=== PATIENT | male | born 1945 | race Two or more races ===

== ENCOUNTER 2020-04-12 11:20 | Inpatient (IN) | payer MEDICARE, MEDICAID ==
[~2020-04-12] VITALS: Ht 172.7 cm; Wt 59.0 kg
[2020-04-12 11:26] VITALS: BP 112/75
--- NOTE | 2020-04-12 11:35 | NUR ---
ED Nurse Note: Pt brought in by [facility] for fever since last night temp 97.9 and tylenol was given at 0830am this morning. No coughing or chills. Awake but non verbal, no signs of respiratory distress.
[2020-04-12] MEDS ORDERED: GLUCOPHAGE500 MG ORAL (12:01)
[2020-04-12] MEDS ORDERED: LIPITOR20 MG ORAL (12:01)
[2020-04-12] MEDS ORDERED: FLEET ENEMA133 ML RECTAL (12:01)
[2020-04-12] MEDS ORDERED: COLACE100 MG ORAL (12:01)
[2020-04-12] MEDS ORDERED: SYMLIN600 MCG/1 SUBQ (12:01)
[2020-04-12] MEDS ORDERED: MELATONIN3 MG ORAL (12:01)
[2020-04-12] MEDS ORDERED: ASPIR 8181 MG ORAL (12:01)
[2020-04-12] MEDS ORDERED: FISH OIL 1,0001 EAC1 ORAL (12:01)
[2020-04-12] MEDS ORDERED: BISACODYL5 MG ORAL (12:01)
[2020-04-12] MEDS ORDERED: MULTIVITAMINS1 EAC8 ORAL (12:03)
[2020-04-12] MEDS ORDERED: TRADJENTA5 MG PO (12:03)
[2020-04-12] MEDS ORDERED: MILK OF MA2400 MG/10 ORAL (12:03)
[2020-04-12] MEDS ORDERED: TYLENOL EXTRA500 MG ORAL (12:03)
--- NOTE | 2020-04-12 12:35 | NUR ---
ED Nurse Note: Collected urine, covid, MRSA/VRE/CRE and blood specimen sent to lab.
--- NOTE | 2020-04-12 12:44 | NUR ---
ED Nurse Note: Noted redness on sacrum. no open wounds noted.
[2020-04-12 12:57] LABS: APPEARANCE,URINE SLIGHTLY CLOUDY; BILIRUBIN, URINE NEGATIVE (NEGATIVE); COLOR,URINE YELLOW; GLUCOSE, URINE (UA) NEGATIVE (NEGATIVE); KETONES,URINE NEGATIVE (NEGATIVE); LEUKOCYTE ESTERASE ,URINE NEGATIVE (NEGATIVE); NITRITE,URINE NEGATIVE (NEGATIVE); PH,URINE 6.5 (4.5-8.0); PROTEIN,URINE 2+ (NEGATIVE); UROBILINOGEN,URINE 4 MG/DL (0.0-1.0)
[2020-04-12 12:59] LABS: BASOPHILS % (AUTO) 0.6 % (0.0-2.0); EOSINOPHILS % (AUTO) 0.7 % (0.0-3.0); HEMATOCRIT 39.1 % (42.0-52.0); HEMOGLOBIN 13.9 G/DL (14.2-18.0); MEAN CORPUSCULAR VOLUME 81 FL (80-99); MONOCYTES % (AUTO) 5.5 % (1.0-10.0); NEUTROPHILS % (AUTO) 62.2 % (45.0-75.0); PLATELET COUNT 301 K/UL (150-450); RED BLOOD COUNT 4.83 M/UL (4.70-6.10); RED CELL DISTRIBUTION WIDTH 11.8 % (11.6-14.8); WHITE BLOOD COUNT 9.4 K/UL (4.8-10.8)
[2020-04-12 13:01] LABS: ANION GAP 8 mmol/L (5-15); BLOOD UREA NITROGEN 12 mg/dL (7-18); CALCIUM 8.5 MG/DL (8.5-10.1); CARBON DIOXIDE 29 MMOL/L (21-32); CHLORIDE 101 MMOL/L (98-107); CREATININE 0.8 MG/DL (0.55-1.30); POTASSIUM 3.5 MMOL/L (3.5-5.1); SODIUM 138 MMOL/L (136-145)
[2020-04-12 13:06] LABS: ALANINE AMINOTRANSFERASE 25 U/L (12-78); ALBUMIN/GLOBULIN RATIO 0.7 (1.0-2.7); ALKALINE PHOSPHATASE 87 U/L (46-116); ASPARTATE AMINO TRANSFERASE 25 U/L (15-37); BILIRUBIN,TOTAL 0.5 MG/DL (0.2-1.0)
[2020-04-12] MEDS ORDERED: Piperacillin/Tazobactam 3.375 GM in NS 110 ML IVPB ONE (13:15)
[2020-04-12] MEDS ORDERED: Azithromycin 500 MG in NS 275 ML IV ONE (13:15)
[2020-04-12 13:35] VITALS: BP 95/64
--- NOTE | 2020-04-12 14:30 | Emergency Room Report ---
History of Present Illness General Chief Complaint: Fever Source: Patient, Medical Record, EMS Present Illness HPI 74-year-old male presents the ED for evaluation. Brought in by EMS from intermediate facility. Reported fever x1 day. Given Tylenol at facility. Afebrile in triage. No signs of distress on arrival. Unable to provide any additional history at this time. History of psych. No reported nausea or vomiting. No shortness of breath. No other aggravating relieving factors. 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 Patient History Past Medical History: DM, COPD, psych hx Pertinent Family History: none Social History: Denies: smoking, alcohol use, drug use Immunizations: UTD Reviewed Nursing Documentation: PMH: Agreed; PSxH: Agreed Nursing Documentation-PMH Past Medical History: No History, Except For Hx COPD: Yes Hx Diabetes: Yes History Of Psychiatric Problem: Yes Review of Systems All Other Systems: limited Physical Exam Vital Signs Date Time Temp Pulse Resp B/P (MAP) Pulse Ox O2 Delivery O2 Flow Rate FiO2 04/12/20 11:26 97.9 81 20 108/64 (79) 95 Room Air Sp02 EP Interpretation: reviewed, normal General Appearance: no apparent distress, GCS 15, non-toxic, other - nonverbal Head: normocephalic, atraumatic Eyes: bilateral eye normal inspection, bilateral eye PERRL ENT: hearing grossly normal, normal pharynx, no angioedema, normal voice Neck: full range of motion, supple/symm/no masses Respiratory: chest non-tender, normal breath sounds, crackles, speaking full sentences Cardiovascular #1: regular rate, rhythm, no edema Cardiovascular #2: 2+ carotid (R), 2+ carotid (L), 2+ radial (R), 2+ radial (L) , 2+ dorsalis pedis (R), 2+ dorsalis pedis (L) Gastrointestinal: normal bowel sounds, non tender, soft, non-distended, no guarding, no rebound Rectal: deferred Genitourinary: normal inspection, no CVA tenderness Musculoskeletal: back normal, normal range of motion, gait/station normal, non- tender Neurologic: other - dementia Psychiatric: judgement/insight normal, memory normal, mood/affect normal, no suicidal/homicidal ideation Reflexes: 3+ bicep (R), 3+ bicep (L), 3+ tricep (R), 3+ tricep (L), 3+ knee (R) , 3+ knee (L) Skin: other - see nursing skin notes Lymphatic: no adenopathy Medical Decision Making Diagnostic Impression: Primary Impression: Fever Qualified Codes: R50.9 - Fever, unspecified Additional Impression: Pneumonia Qualified Codes: J18.9 - Pneumonia, unspecified organism ER Course Hospital Course 74 yo M presents with fever from SNF Differential diagnoses include: Pneumonia, UTI, sepsis Clinical course Patient placed on stretcher. in isolation. i wore full PPE. 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 After initial history and physical, I ordered labs , IV fluids, EKG, chest x-ray, blood cultures, UA. Labs -no leukocytosis, hemoglobin/hematocrit stable, electrolytes ok, lactic within normal limits, UA ok EKG - NSR, no acute ischemic changes interpreted by me CXR - R lower lobe infiltrate vitals stable. given IVFs. given abx. COVID swab sent. Case discussed with Dr. Parnell and he agreed to the patient to his service for further care and support I feel this is a highly complex case requiring extensive working including EKG/ Rhythm strip, Xray/CT/US, Blood/urine lab work, repeat exams while in ED, and administration of strong opiates/narcotics for pain control, admission to hospital or close patient follow up. Diagnosis - pneumonia, fever Patient admitted to floor in serious condition Labs Test 04/12/20 12:00 04/12/20 13:15 White Blood Count 9.4 K/UL (4.8-10.8) Red Blood Count 4.83 M/UL (4.70-6.10) Hemoglobin 13.9 G/DL (14.2-18.0) Hematocrit 39.1 % (42.0-52.0) Mean Corpuscular Volume 81 FL (80-99) Mean Corpuscular Hemoglobin 28.7 PG (27.0-31.0) Mean Corpuscular Hemoglobin Concent 35.5 G/DL (32.0-36.0) Red Cell Distribution Width 11.8 % (11.6-14.8) Platelet Count 301 K/UL (150-450) Mean Platelet Volume 5.2 FL (6.5-10.1) Neutrophils (%) (Auto) 62.2 % (45.0-75.0) Lymphocytes (%) (Auto) 31.0 % (20.0-45.0) Monocytes (%) (Auto) 5.5 % (1.0-10.0) Eosinophils (%) (Auto) 0.7 % (0.0-3.0) Basophils (%) (Auto) 0.6 % (0.0-2.0) Urine Color Yellow Urine Appearance Slightly cloudy Urine pH 6.5 (4.5-8.0) Urine Specific [place] 1.015 (1.005-1.035) Urine Protein 2+ (NEGATIVE) Urine Glucose (UA) Negative (NEGATIVE) Urine Ketones Negative (NEGATIVE) Urine Blood Negative (NEGATIVE) Urine Nitrite Negative (NEGATIVE) Urine Bilirubin Negative (NEGATIVE) Urine Urobilinogen 4 MG/DL (0.0-1.0) Urine Leukocyte Esterase Negative (NEGATIVE) Urine RBC 0 /HPF (0 - 0) Urine WBC 0-2 /HPF (0 - 0) Urine Squamous Epithelial Cells Occasional /LPF Urine Amorphous Sediment Few /LPF (NONE) Urine Bacteria Occasional /HPF (NONE) Sodium Level 138 MMOL/L (136-145) Potassium Level 3.5 MMOL/L (3.5-5.1) Chloride Level 101 MMOL/L (98-107) Carbon Dioxide Level 29 MMOL/L (21-32) Anion Gap 8 mmol/L (5-15) Blood Urea Nitrogen 12 mg/dL (7-18) Creatinine 0.8 MG/DL (0.55-1.30) Estimat Glomerular Filtration Rate > 60 mL/min (>60) Glucose Level 172 MG/DL (74-106) Lactic Acid Level 2.10 mmol/L (0.4-2.0) 2.00 mmol/L (0.66-2.22) Calcium Level 8.5 MG/DL (8.5-10.1) Total Bilirubin 0.5 MG/DL (0.2-1.0) Aspartate Amino Transf (AST/SGOT) 25 U/L (15-37) Alanine Aminotransferase (ALT/SGPT) 25 U/L (12-78) Alkaline Phosphatase 87 U/L (46-116) Total Protein 7.4 G/DL (6.4-8.2) Albumin 3.0 G/DL (3.4-5.0) Globulin 4.4 g/dL Albumin/Globulin Ratio 0.7 (1.0-2.7) EKG Diagnostic Results Rate: normal Rhythm: NSR ST Segments: no acute changes ASA given to the pt in ED: No Rhythm Strip Diag. Results EP Interpretation: yes Rhythm: NSR, no PVC's, no ectopy Chest X-Ray Diagnostic Results Chest X-Ray Diagnostic Results : Chest X-Ray Ordered: Yes # of Views/Limited/Complete: 1 View Indication: Other Interpretation: no pneumothorax, other - interstitial congestion Impression: Other - pneumonia Electronically Signed by: Electronically signed by Gino Cole MD Last Vital Signs Date Time Temp Pulse Resp B/P (MAP) Pulse Ox O2 Delivery O2 Flow Rate FiO2 04/12/20 11:36 81 18 Room Air 04/12/20 11:26 97.9 112/75 99 Status: improved Disposition: ADMITTED INPATIENT Condition: Serious Referrals: Prem Parnell DO (PCP) Gino Cole MD April 12, 2020 14:30
--- NOTE | 2020-04-12 14:54 | Consultation ---
History of Present Illness General Chief Complaint: Fever Present Illness HPI 74-year-old male with hx of COPD, DM, psychosis [facility] resident brought in by paramedics to ED for evaluation of fever x1 day. . No signs of distress on arrival. Unable to provide any additional history at this time. No reported nausea or vomiting. No shortness of breath. No other aggravating relieving factors. No other associated symptoms. Pt's CXR showed multiple infiltrates. He is admitted to rule out COVID infection. Allergies: Coded Allergies: No Known Allergies (Unverified , 04/12/20) Medication History Scheduled Aspirin* (Aspir 81*), 81 MG ORAL DAILY, (Reported) Atorvastatin Calcium* (Lipitor*), 20 MG ORAL BEDTIME, (Reported) Bisacodyl* (Dulcolax*), 10 MG ORAL DAILY, (Reported) Docusate Sodium* (Colace*), 100 MG ORAL DAILY, (Reported) Magnesium Hydroxide* (Milk Of Magnesia*), 30 ML ORAL DAILY, (Reported) Metformin Hcl* (Glucophage*), 500 MG ORAL DAILY, (Reported) Multivitamin With Minerals (Multivitamins With Minerals*), 1 TAB ORAL DAILY, ( Reported) Na Phos,M-B/Na Phos,Di-Ba* (Fleet Enema*), 133 ML RECTAL DAILY, (Reported) [place]-3 Fatty Acids/Fish Oil* (Fish Oil 1,000 Mg Softgel*), 1 CAP ORAL DAILY, ( Reported) Scheduled PRN Acetaminophen* (Tylenol Extra Strength*), 325 MG ORAL Q6H PRN for Mild Pain/ Temp > 100.5, (Reported) Melatonin (Melatonin), 3 MG ORAL BEDTIME PRN for Insomnia, (Reported) Miscellaneous Medications Insulin Regular, Human (Humulin R), Unknown Dose SUBQ, (Reported) Linagliptin (Tradjenta), 5 MG PO, (Reported) Patient History Healthcare decision maker Resuscitation status Advanced Directive on File Past Medical/Surgical History Past Medical/Surgical History: (1) COPD (chronic obstructive pulmonary disease) (2) Diabetes mellitus (3) Psychosis Review of Systems All Other Systems: negative except mentioned in HPI Physical Exam General Appearance: cachetic, thin Lines, tubes and drains: peripheral HEENT: normocephalic, anicteric Neck: non-tender, supple Respiratory/Chest: rhonchi - left, rhonchi - right Cardiovascular/Chest: normal peripheral pulses, normal rate Abdomen: normal bowel sounds, non tender Extremities: normal range of motion Skin Exam: normal pigmentation Last 24 Hour Vital Signs Date Time Temp Pulse Resp B/P (MAP) Pulse Ox O2 Delivery O2 Flow Rate FiO2 04/12/20 11:36 81 18 Room Air 04/12/20 11:26 97.9 81 16 112/75 99 Room Air 04/12/20 11:26 97.9 81 20 108/64 (79) 95 Room Air Laboratory Tests Test 04/12/20 12:00 04/12/20 13:15 White Blood Count 9.4 K/UL (4.8-10.8) Red Blood Count 4.83 M/UL (4.70-6.10) Hemoglobin 13.9 G/DL (14.2-18.0) L Hematocrit 39.1 % (42.0-52.0) L Mean Corpuscular Volume 81 FL (80-99) Mean Corpuscular Hemoglobin 28.7 PG (27.0-31.0) Mean Corpuscular Hemoglobin Concent 35.5 G/DL (32.0-36.0) Red Cell Distribution Width 11.8 % (11.6-14.8) Platelet Count 301 K/UL (150-450) Mean Platelet Volume 5.2 FL (6.5-10.1) L Neutrophils (%) (Auto) 62.2 % (45.0-75.0) Lymphocytes (%) (Auto) 31.0 % (20.0-45.0) Monocytes (%) (Auto) 5.5 % (1.0-10.0) Eosinophils (%) (Auto) 0.7 % (0.0-3.0) Basophils (%) (Auto) 0.6 % (0.0-2.0) Urine Color Yellow Urine Appearance Slightly cloudy Urine pH 6.5 (4.5-8.0) Urine Specific [place] 1.015 (1.005-1.035) Urine Protein 2+ (NEGATIVE) H Urine Glucose (UA) Negative (NEGATIVE) Urine Ketones Negative (NEGATIVE) Urine Blood Negative (NEGATIVE) Urine Nitrite Negative (NEGATIVE) Urine Bilirubin Negative (NEGATIVE) Urine Urobilinogen 4 MG/DL (0.0-1.0) H Urine Leukocyte Esterase Negative (NEGATIVE) Urine RBC 0 /HPF (0 - 0) Urine WBC 0-2 /HPF (0 - 0) Urine Squamous Epithelial Cells Occasional /LPF Urine Amorphous Sediment Few /LPF (NONE) H Urine Bacteria Occasional /HPF (NONE) Sodium Level 138 MMOL/L (136-145) Potassium Level 3.5 MMOL/L (3.5-5.1) Chloride Level 101 MMOL/L (98-107) Carbon Dioxide Level 29 MMOL/L (21-32) Anion Gap 8 mmol/L (5-15) Blood Urea Nitrogen 12 mg/dL (7-18) Creatinine 0.8 MG/DL (0.55-1.30) Estimat Glomerular Filtration Rate > 60 mL/min (>60) Glucose Level 172 MG/DL (74-106) H Lactic Acid Level 2.10 mmol/L (0.4-2.0) H 2.00 mmol/L (0.66-2.22) Calcium Level 8.5 MG/DL (8.5-10.1) Total Bilirubin 0.5 MG/DL (0.2-1.0) Aspartate Amino Transf (AST/SGOT) 25 U/L (15-37) Alanine Aminotransferase (ALT/SGPT) 25 U/L (12-78) Alkaline Phosphatase 87 U/L (46-116) Total Protein 7.4 G/DL (6.4-8.2) Albumin 3.0 G/DL (3.4-5.0) L Globulin 4.4 g/dL Albumin/Globulin Ratio 0.7 (1.0-2.7) L Height (Feet): 5 Height (Inches): 8.00 Weight (Pounds): 140 Assessment/Plan Problem List: (1) Fever ICD Codes: R50.9 - Fever, unspecified SNOMED: 734185009 Qualifiers: Qualified Codes: R50.9 - Fever, unspecified (2) Nosocomial pneumonia ICD Codes: J18.9 - Pneumonia, unspecified organism; Y95 - Nosocomial condition SNOMED: 917566294 (3) Suspected 2019-nCoV infection ICD Codes: Z20.828 - Contact with and (suspected) exposure to other viral communicable diseases SNOMED: 984692898 (4) COPD (chronic obstructive pulmonary disease) ICD Codes: J44.9 - Chronic obstructive pulmonary disease, unspecified SNOMED: 81204495 (5) Diabetes mellitus ICD Codes: E11.9 - Type 2 diabetes mellitus without complications SNOMED: 81267644 Assessment/Plan: fallon culture iv abx f/u wbc Olivia testing sliding scale diabetic diet Gabi Stewart MD April 12, 2020 14:54
[2020-04-12] MEDS ORDERED: Albuterol/Ipratropium 3ml neb HHN PRN (15:00)
[2020-04-12] MEDS ORDERED: Miralax 17gm pkt ORAL PRN (15:00)
[2020-04-12] MEDS ORDERED: Nitroglycerin Subl 0.4mg tab SL PRN (15:00)
[2020-04-12 15:05] VITALS: BP 96/62
--- NOTE | 2020-04-12 15:15 | NUR ---
ED Nurse Note: Report given to Renato WARE of Med Surg unit.
--- NOTE | 2020-04-12 15:40 | NUR ---
ED Nurse Note: Pt transferred to Med Surg unit with no belongings. Stable for transfer.
[2020-04-12 16:00] VITALS: BP 117/49
--- NOTE | 2020-04-12 16:00 | NUR ---
NURSE NOTES: RN RECEIVED PT FROM EMERGENCY ROOM. PT HAD DIAPER ON UPON ARRIVAL. PT HAS STAGE 1 SACRAL WOUND. RN TOOK PICTURE AND APPLIED SKIN BARRIER FILM AND OPTIFOAM DRESSING. IN NO APPARENT DISTRESS AT THIS TIME. VSS. BED IN LOWEST POSITION WITH BEDSIDE RAILS X3 RAISED. BED ALARM ON. WILL CONTINUE TO MONITOR.
[2020-04-12] MEDS: NovoLOG Insulin Flexpen SUBQ SCH ×2 (16:30→21:00)
--- NOTE | 2020-04-12 16:52 | Consultation ---
History of Present Illness General Date patient seen: April 12, 2020 Chief Complaint: Fever Present Illness HPI 74 y/o M with hx of Dm2, COPD, psychiatric disorder, SNF resident ([facility]) presented to ED on 04/12 with 1 day of fever No report of nausea, vomiting, SOB Allergies: Coded Allergies: No Known Allergies (Unverified , 04/12/20) Medication History Scheduled Aspirin* (Aspir 81*), 81 MG ORAL DAILY, (Reported) Atorvastatin Calcium* (Lipitor*), 20 MG ORAL BEDTIME, (Reported) Bisacodyl* (Dulcolax*), 10 MG ORAL DAILY, (Reported) Docusate Sodium* (Colace*), 100 MG ORAL DAILY, (Reported) Magnesium Hydroxide* (Milk Of Magnesia*), 30 ML ORAL DAILY, (Reported) Metformin Hcl* (Glucophage*), 500 MG ORAL DAILY, (Reported) Multivitamin With Minerals (Multivitamins With Minerals*), 1 TAB ORAL DAILY, ( Reported) Na Phos,M-B/Na Phos,Di-Ba* (Fleet Enema*), 133 ML RECTAL DAILY, (Reported) [place]-3 Fatty Acids/Fish Oil* (Fish Oil 1,000 Mg Softgel*), 1 CAP ORAL DAILY, ( Reported) Scheduled PRN Acetaminophen* (Tylenol Extra Strength*), 325 MG ORAL Q6H PRN for Mild Pain/ Temp > 100.5, (Reported) Melatonin (Melatonin), 3 MG ORAL BEDTIME PRN for Insomnia, (Reported) Miscellaneous Medications Insulin Regular, Human (Humulin R), Unknown Dose SUBQ, (Reported) Linagliptin (Tradjenta), 5 MG PO, (Reported) Patient History Healthcare decision maker Resuscitation status Advanced Directive on File Patient History Narrative Pmhx: as above Shx: Denies: smoking, alcohol use, drug use Fhx: non contributory Review of Systems All Other Systems: negative except mentioned in HPI Physical Exam Physical Exam Narrative General Appearance: cachetic, thin Lines, tubes and drains: peripheral HEENT: normocephalic, anicteric Neck: non-tender, supple Respiratory/Chest: rhonchi - left, rhonchi - right Cardiovascular/Chest: normal peripheral pulses, normal rate Abdomen: normal bowel sounds, non tender Extremities: normal range of motion Skin Exam: normal pigmentation Last 24 Hour Vital Signs Date Time Temp Pulse Resp B/P (MAP) Pulse Ox O2 Delivery O2 Flow Rate FiO2 04/12/20 16:00 98.1 82 19 117/49 (71) 96 04/12/20 15:40 97.9 80 16 102/73 99 Room Air 04/12/20 15:05 97.9 77 18 96/62 97 Room Air 04/12/20 13:35 97.9 76 16 95/64 95 Room Air 04/12/20 11:36 81 18 Room Air 04/12/20 11:26 97.9 81 16 112/75 99 Room Air 04/12/20 11:26 97.9 81 20 108/64 (79) 95 Room Air Laboratory Tests Test 04/12/20 12:00 04/12/20 13:15 White Blood Count 9.4 K/UL (4.8-10.8) Red Blood Count 4.83 M/UL (4.70-6.10) Hemoglobin 13.9 G/DL (14.2-18.0) L Hematocrit 39.1 % (42.0-52.0) L Mean Corpuscular Volume 81 FL (80-99) Mean Corpuscular Hemoglobin 28.7 PG (27.0-31.0) Mean Corpuscular Hemoglobin Concent 35.5 G/DL (32.0-36.0) Red Cell Distribution Width 11.8 % (11.6-14.8) Platelet Count 301 K/UL (150-450) Mean Platelet Volume 5.2 FL (6.5-10.1) L Neutrophils (%) (Auto) 62.2 % (45.0-75.0) Lymphocytes (%) (Auto) 31.0 % (20.0-45.0) Monocytes (%) (Auto) 5.5 % (1.0-10.0) Eosinophils (%) (Auto) 0.7 % (0.0-3.0) Basophils (%) (Auto) 0.6 % (0.0-2.0) Urine Color Yellow Urine Appearance Slightly cloudy Urine pH 6.5 (4.5-8.0) Urine Specific [place] 1.015 (1.005-1.035) Urine Protein 2+ (NEGATIVE) H Urine Glucose (UA) Negative (NEGATIVE) Urine Ketones Negative (NEGATIVE) Urine Blood Negative (NEGATIVE) Urine Nitrite Negative (NEGATIVE) Urine Bilirubin Negative (NEGATIVE) Urine Urobilinogen 4 MG/DL (0.0-1.0) H Urine Leukocyte Esterase Negative (NEGATIVE) Urine RBC 0 /HPF (0 - 0) Urine WBC 0-2 /HPF (0 - 0) Urine Squamous Epithelial Cells Occasional /LPF Urine Amorphous Sediment Few /LPF (NONE) H Urine Bacteria Occasional /HPF (NONE) Sodium Level 138 MMOL/L (136-145) Potassium Level 3.5 MMOL/L (3.5-5.1) Chloride Level 101 MMOL/L (98-107) Carbon Dioxide Level 29 MMOL/L (21-32) Anion Gap 8 mmol/L (5-15) Blood Urea Nitrogen 12 mg/dL (7-18) Creatinine 0.8 MG/DL (0.55-1.30) Estimat Glomerular Filtration Rate > 60 mL/min (>60) Glucose Level 172 MG/DL (74-106) H Lactic Acid Level 2.10 mmol/L (0.4-2.0) H 2.00 mmol/L (0.66-2.22) Calcium Level 8.5 MG/DL (8.5-10.1) Total Bilirubin 0.5 MG/DL (0.2-1.0) Aspartate Amino Transf (AST/SGOT) 25 U/L (15-37) Alanine Aminotransferase (ALT/SGPT) 25 U/L (12-78) Alkaline Phosphatase 87 U/L (46-116) Total Protein 7.4 G/DL (6.4-8.2) Albumin 3.0 G/DL (3.4-5.0) L Globulin 4.4 g/dL Albumin/Globulin Ratio 0.7 (1.0-2.7) L Height (Feet): 5 Height (Inches): 8.00 Weight (Pounds): 140 Medications Current Medications Medications (Trade) Dose Ordered Sig/Rodney Route PRN Reason Start Time Stop Time Status Last Admin Dose Admin Acetaminophen (Tylenol) 650 mg Q4H PRN ORAL fever 04/12/20 15:00 05/12/20 14:59 Albuterol/ Ipratropium (Combivent Respimat) 1 puff Q4H PRN INH Shortness of Breath 04/12/20 15:33 05/12/20 15:32 Atorvastatin Calcium (Lipitor) 20 mg BEDTIME ORAL 04/12/20 21:00 07/11/20 20:59 Cefepime HCl 2 gm/ Dextrose 110 ml @ 220 mls/hr EVERY 12 HOURS IV 04/12/20 21:00 04/19/20 20:59 Dextrose (Dextrose 50%) 25 ml Q30M PRN IV Hypoglycemia 04/12/20 15:00 07/11/20 14:59 Dextrose (Dextrose 50%) 50 ml Q30M PRN IV Hypoglycemia 04/12/20 15:00 07/11/20 14:59 Heparin Sodium (Porcine) (Heparin 5000 units/ml) 5,000 units EVERY 12 HOURS SUBQ 04/12/20 21:00 05/27/20 20:59 Insulin Aspart (NovoLOG) BEFORE MEALS AND HS SUBQ 04/12/20 16:30 07/11/20 16:29 Nitroglycerin (Ntg) 0.4 mg Q5M PRN SL Prn Chest Pain 04/12/20 15:00 05/12/20 14:59 Ondansetron HCl (Zofran) 4 mg Q6H PRN IVP Nausea & Vomiting 04/12/20 15:00 05/12/20 14:59 Polyethylene Glycol (Miralax) 17 gm DAILYPRN PRN ORAL Constipation 04/12/20 15:00 05/12/20 14:59 Temazepam (Restoril) 15 mg HSPRN PRN ORAL Insomnia 04/12/20 15:00 04/19/20 14:59 Vancomycin HCl (Vanco rx to dose) 1 ea DAILY PRN MISC . 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 Will continue to follow along with you. Discussed with JEANIE. Genesis Omalley M.D. April 12, 2020 16:52
--- NOTE | 2020-04-12 17:29 | Diagnostic Imaging Report ---
Indication: Cough Technique: One view of the chest Comparison: none Findings: There is bilateral interstitial disease as well as right basilar and possibly left retrocardiac airspace disease. Pleural spaces are clear. The heart size is normal. Impression: Bilateral interstitial and airspace infiltrates, possibly representing pneumonia, as described
--- NOTE | 2020-04-12 19:30 | NUR ---
NURSE NOTES: RECEIVED PATIENT FROM JEANIE MONTERROSO. PATIENT IS AWAKE, AAOX1, PORTUGUESE SPEAKING. PATIENT IS ON R.A, NO ACUTE DISTRESS NOTED. HERRERA INTACT, DRAINING WELL, HERRERA ANCHOR IN PLACE. WOUND DRESSINGS ON SACRAL AND HEELS INTACT AND DRY. IV ON RIGHT HAND 20G, SL, INTACT AND PATENT. BED IS LOCKED AND LOW, BED ALARMS ACTIVE, SIDE RAILS UPX2 AND CALL LIGHT IS WITHIN REACH. WILL CONTINUE TO MONITOR. Addendum: 04/13/20 at 2350 by Zoe Edwards RN CONDOM CATH, NOT HERRERA CATH.
--- NOTE | 2020-04-12 19:57 | NUR ---
HAND-OFF: Report given to Asia VANCE RN.
--- NOTE | 2020-04-12 19:59 | NUR ---
NURSE NOTES: RN WAS UNABLE TO UPLOAD WOUND PICTURES AT 4 EAST OR 3 EAST. CAMERA UNRECOGNIZED AT COMPUTERS AT THESE NURSING STATIONS. RN MADE Asia VANCE RN AWARE.
[2020-04-12 20:27] VITALS: BP 126/53
[2020-04-12] MEDS: Atorvastatin 20mg tab ORAL SCH ×2 (21:00→21:22)
[2020-04-12] MEDS: Vancomycin 750 MG in NS 275 ML IVPB SCH (21:22)
[2020-04-12] MEDS: Cefepime HCl 2 GM in D5W 110 ML IV SCH (21:22)
[2020-04-12] MEDS: Heparin 5000 units/ml inj SUBQ SCH (21:23)
[2020-04-13] MEDS ORDERED: Vancomycin 1 GM in D5W 275 ML IV SCH (00:30)
[2020-04-13 03:05] LABS: APPEARANCE,URINE CLEAR; COLOR,URINE PALE YELLOW; PH,URINE 7 (4.5-8.0); PROTEIN,URINE 1+ (NEGATIVE)
[2020-04-13 03:06] LABS: BILIRUBIN, URINE NEGATIVE (NEGATIVE); GLUCOSE, URINE (UA) NEGATIVE (NEGATIVE); KETONES,URINE NEGATIVE (NEGATIVE); LEUKOCYTE ESTERASE ,URINE NEGATIVE (NEGATIVE); NITRITE,URINE NEGATIVE (NEGATIVE); UROBILINOGEN,URINE NORMAL MG/DL (0.0-1.0)
[2020-04-13 04:00] VITALS: BP 98/61
[2020-04-13] MEDS: NovoLOG Insulin Flexpen SUBQ SCH ×4 (06:08→21:00)
[2020-04-13 06:22] LABS: BASOPHILS % (AUTO) 0.3 % (0.0-2.0); EOSINOPHILS % (AUTO) 1.2 % (0.0-3.0); HEMOGLOBIN 11.8 G/DL (14.2-18.0); MEAN CORPUSCULAR VOLUME 81 FL (80-99); MONOCYTES % (AUTO) 4.3 % (1.0-10.0); NEUTROPHILS % (AUTO) 59.2 % (45.0-75.0); PLATELET COUNT 280 K/UL (150-450); RED BLOOD COUNT 4.18 M/UL (4.70-6.10); WHITE BLOOD COUNT 6.9 K/UL (4.8-10.8)
[2020-04-13 07:01] LABS: ALANINE AMINOTRANSFERASE 21 U/L (12-78); ALBUMIN 2.5 G/DL (3.4-5.0); ALBUMIN/GLOBULIN RATIO 0.7 (1.0-2.7); ALKALINE PHOSPHATASE 70 U/L (46-116); ANION GAP 8 mmol/L (5-15); ASPARTATE AMINO TRANSFERASE 25 U/L (15-37); BILIRUBIN,TOTAL 0.5 MG/DL (0.2-1.0); BLOOD UREA NITROGEN 10 mg/dL (7-18); CALCIUM 7.4 MG/DL (8.5-10.1); CARBON DIOXIDE 27 MMOL/L (21-32); CHLORIDE 103 MMOL/L (98-107); CREATININE 0.9 MG/DL (0.55-1.30); POTASSIUM 3.2 MMOL/L (3.5-5.1); SODIUM 138 MMOL/L (136-145)
--- NOTE | 2020-04-13 07:18 | NUR ---
HAND-OFF: Report given to JEANIE Gross. Pictures uploaded. Patient is in stable condition.
[2020-04-13 08:00] VITALS: BP 103/56
[2020-04-13] MEDS: Cefepime HCl 2 GM in D5W 110 ML IV SCH ×2 (08:48→20:28)
[2020-04-13] MEDS: Heparin 5000 units/ml inj SUBQ SCH ×2 (08:53→20:29)
[2020-04-13] MEDS: Vancomycin 750 MG in NS 275 ML IVPB SCH ×2 (09:52→20:28)
[2020-04-13 11:57] VITALS: BP 104/57
--- NOTE | 2020-04-13 12:57 | Pulmonology Progress Note ---
Subjective ROS Limited/Unobtainable: No Constitutional: Reports: no symptoms HEENT: Repors: no symptoms Respiratory: Reports: no symptoms Allergies: Coded Allergies: No Known Allergies (Unverified , 04/12/20) Objective Last 24 Hour Vital Signs Date Time Temp Pulse Resp B/P (MAP) Pulse Ox O2 Delivery O2 Flow Rate FiO2 04/13/20 11:57 98.4 70 18 104/57 (73) 96 04/13/20 09:00 Room Air 04/13/20 08:00 97.8 77 20 103/56 (72) 97 04/13/20 04:00 98.1 86 18 98/61 (73) 93 04/12/20 21:00 Room Air 04/12/20 20:27 98.5 84 18 126/53 (77) 93 04/12/20 17:01 Room Air 04/12/20 16:00 98.1 82 19 117/49 (71) 96 04/12/20 15:40 97.9 80 16 102/73 99 Room Air 04/12/20 15:05 97.9 77 18 96/62 97 Room Air 04/12/20 13:35 97.9 76 16 95/64 95 Room Air Intake and Output 04/12/20 04/13/20 19:00 07:00 Intake Total 2445 ml 586.666 ml Balance 2445 ml 586.666 ml Intake Oral 60 ml IV Total 2385 ml 586.666 ml # Voids 3 # Bowel Movements 1 1 General Appearance: WD/WN, no acute distress HEENT: normocephalic, atraumatic, PERRL Respiratory: chest wall non-tender, lungs clear Cardiovascular: normal rate Abdomen: normal bowel sounds, soft, non tender, no scars Extremities: no cyanosis Skin: no rash 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 Lymphatic: no neck adenopathy Laboratory Tests 04/12/20 13:15: Lactic Acid Level 2.00 04/12/20 23:30: Urine Color Pale yellow, Urine Appearance Clear, Urine pH 7, Urine Specific [place] 1.010, Urine Protein 1+H, Urine Glucose (UA) Negative, Urine Ketones Negative, Urine Blood Negative, Urine Nitrite Negative, Urine Bilirubin Negative , Urine Urobilinogen Normal, Urine Leukocyte Esterase Negative, Urine RBC 0-2H, Urine WBC 0, Urine Squamous Epithelial Cells None, Urine Bacteria None 04/13/20 05:00: White Blood Count 6.9, Red Blood Count 4.18L, Hemoglobin 11.8L, Hematocrit 34.0L , Mean Corpuscular Volume 81, Mean Corpuscular Hemoglobin 28.2, Mean Corpuscular Hemoglobin Concent 34.7, Red Cell Distribution Width 12.0, Platelet Count 280, Mean Platelet Volume 5.1L, Neutrophils (%) (Auto) 59.2, Lymphocytes ( %) (Auto) 35.0, Monocytes (%) (Auto) 4.3, Eosinophils (%) (Auto) 1.2, Basophils (%) (Auto) 0.3, Sodium Level 138, Potassium Level 3.2L, Chloride Level 103, Carbon Dioxide Level 27, Anion Gap 8, Blood Urea Nitrogen 10, Creatinine 0.9, Estimat Glomerular Filtration Rate > 60, Glucose Level 103, Calcium Level 7.4L, Total Bilirubin 0.5, Aspartate Amino Transf (AST/SGOT) 25, Alanine Aminotransferase (ALT/SGPT) 21, Alkaline Phosphatase 70, Total Protein 6.2L, Albumin 2.5L, Globulin 3.7, Albumin/Globulin Ratio 0.7L Current Medications Medications (Trade) Dose Ordered Sig/Rodney Route PRN Reason Start Time Stop Time Status Last Admin Dose Admin Acetaminophen (Tylenol) 650 mg Q4H PRN ORAL fever 04/12/20 15:00 05/12/20 14:59 Albuterol/ Ipratropium (Combivent Respimat) 1 puff Q4H PRN INH Shortness of Breath 04/12/20 15:33 05/12/20 15:32 Atorvastatin Calcium (Lipitor) 20 mg BEDTIME ORAL 04/12/20 21:00 07/11/20 20:59 Cefepime HCl 2 gm/ Dextrose 110 ml @ 220 mls/hr EVERY 12 HOURS IV 04/12/20 21:00 04/19/20 20:59 04/13/20 08:48 Dextrose (Dextrose 50%) 25 ml Q30M PRN IV Hypoglycemia 04/12/20 15:00 07/11/20 14:59 Dextrose (Dextrose 50%) 50 ml Q30M PRN IV Hypoglycemia 04/12/20 15:00 07/11/20 14:59 Heparin Sodium (Porcine) (Heparin 5000 units/ml) 5,000 units EVERY 12 HOURS SUBQ 04/12/20 21:00 05/27/20 20:59 04/13/20 08:53 Insulin Aspart (NovoLOG) BEFORE MEALS AND HS SUBQ 04/12/20 16:30 07/11/20 16:29 Nitroglycerin (Ntg) 0.4 mg Q5M PRN SL Prn Chest Pain 04/12/20 15:00 05/12/20 14:59 Ondansetron HCl (Zofran) 4 mg Q6H PRN IVP Nausea & Vomiting 04/12/20 15:00 05/12/20 14:59 Polyethylene Glycol (Miralax) 17 gm DAILYPRN PRN ORAL Constipation 04/12/20 15:00 05/12/20 14:59 Temazepam (Restoril) 15 mg HSPRN PRN ORAL Insomnia 04/12/20 15:00 04/19/20 14:59 Vancomycin HCl (Vanco rx to dose) 1 ea DAILY PRN MISC . 04/12/20 15:30 05/12/20 15:29 Vancomycin HCl 750 mg/Sodium Chloride 275 ml @ 183.333 mls/hr Q12HR IVPB 04/12/20 21:00 04/17/20 20:59 04/13/20 09:52 Assessment/Plan Problems: (1) Fever (2) Nosocomial pneumonia (3) Suspected 2019-nCoV infection (4) COPD (chronic obstructive pulmonary disease) (5) Diabetes mellitus (6) Psychosis Assessment/Plan afebrile doing ok fallon culture iv abx f/u wbc Olivia testing sliding scale diabetic diet Gabi Stewart MD April 13, 2020 12:57
--- NOTE | 2020-04-13 14:28 | NUR ---
CASE MANAGEMENT:INITIAL REVIEW 74 YR OLD MALE BIBA FROM [facility] CONV CC;FEVER SI;FEVER. SUSPECTED COVID-19. 97.9 81 18 95/64 95% ON RA BG 172 LAC ACID 2.10 ALB 3.0 UA+ PROTEIN, UROBILI, AMORPHOUS SEDIMENT CXR~ Bilateral interstitial and airspace infiltrates, possibly representing pneumonia, as described COVID-19~RESULT PENDING IS;IVF NS BOLUS AZITHROMYCIN IV ONCE ZOSYN IV ONCE ADMITTED TO MED SURG @ 1508 ON 04/12/20 MED SURG STATUS DCP;FROM [facility]
--- NOTE | 2020-04-13 15:51 | Infectious Diseases Prog Note ---
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 Will continue to follow along with you. Discussed with RN. Subjective Allergies: Coded Allergies: No Known Allergies (Unverified , 04/12/20) Subjective afebrile at RA Objective Vital Signs Last 24 Hour Vital Signs Date Time Temp Pulse Resp B/P (MAP) Pulse Ox O2 Delivery O2 Flow Rate FiO2 04/13/20 11:57 98.4 70 18 104/57 (73) 96 04/13/20 09:00 Room Air 04/13/20 08:00 97.8 77 20 103/56 (72) 97 04/13/20 04:00 98.1 86 18 98/61 (73) 93 04/12/20 21:00 Room Air 04/12/20 20:27 98.5 84 18 126/53 (77) 93 04/12/20 17:01 Room Air 04/12/20 16:00 98.1 82 19 117/49 (71) 96 Height (Feet): 5 Height (Inches): 8.00 Weight (Pounds): 140 Objective not examined to limit COVID19 exposure Laboratory Tests Test 04/12/20 23:30 04/13/20 05:00 Urine Color Pale yellow Urine Appearance Clear Urine pH 7 (4.5-8.0) Urine Specific [place] 1.010 (1.005-1.035) Urine Protein 1+ (NEGATIVE) H Urine Glucose (UA) Negative (NEGATIVE) Urine Ketones Negative (NEGATIVE) Urine Blood Negative (NEGATIVE) Urine Nitrite Negative (NEGATIVE) Urine Bilirubin Negative (NEGATIVE) Urine Urobilinogen Normal MG/DL (0.0-1.0) Urine Leukocyte Esterase Negative (NEGATIVE) Urine RBC 0-2 /HPF (0 - 0) H Urine WBC 0 /HPF (0 - 0) Urine Squamous Epithelial Cells None /LPF (NONE/OCC) Urine Bacteria None /HPF (NONE) White Blood Count 6.9 K/UL (4.8-10.8) Red Blood Count 4.18 M/UL (4.70-6.10) L Hemoglobin 11.8 G/DL (14.2-18.0) L Hematocrit 34.0 % (42.0-52.0) L Mean Corpuscular Volume 81 FL (80-99) Mean Corpuscular Hemoglobin 28.2 PG (27.0-31.0) Mean Corpuscular Hemoglobin Concent 34.7 G/DL (32.0-36.0) Red Cell Distribution Width 12.0 % (11.6-14.8) Platelet Count 280 K/UL (150-450) Mean Platelet Volume 5.1 FL (6.5-10.1) L Neutrophils (%) (Auto) 59.2 % (45.0-75.0) Lymphocytes (%) (Auto) 35.0 % (20.0-45.0) Monocytes (%) (Auto) 4.3 % (1.0-10.0) Eosinophils (%) (Auto) 1.2 % (0.0-3.0) Basophils (%) (Auto) 0.3 % (0.0-2.0) Sodium Level 138 MMOL/L (136-145) Potassium Level 3.2 MMOL/L (3.5-5.1) L Chloride Level 103 MMOL/L (98-107) Carbon Dioxide Level 27 MMOL/L (21-32) Anion Gap 8 mmol/L (5-15) Blood Urea Nitrogen 10 mg/dL (7-18) Creatinine 0.9 MG/DL (0.55-1.30) Estimat Glomerular Filtration Rate > 60 mL/min (>60) Glucose Level 103 MG/DL (74-106) Calcium Level 7.4 MG/DL (8.5-10.1) L Total Bilirubin 0.5 MG/DL (0.2-1.0) Aspartate Amino Transf (AST/SGOT) 25 U/L (15-37) Alanine Aminotransferase (ALT/SGPT) 21 U/L (12-78) Alkaline Phosphatase 70 U/L (46-116) Total Protein 6.2 G/DL (6.4-8.2) L Albumin 2.5 G/DL (3.4-5.0) L Globulin 3.7 g/dL Albumin/Globulin Ratio 0.7 (1.0-2.7) L Current Medications Medications (Trade) Dose Ordered Sig/Rodney Route PRN Reason Start Time Stop Time Status Last Admin Dose Admin Acetaminophen (Tylenol) 650 mg Q4H PRN ORAL fever 04/12/20 15:00 05/12/20 14:59 Albuterol/ Ipratropium (Combivent Respimat) 1 puff Q4H PRN INH Shortness of Breath 04/12/20 15:33 05/12/20 15:32 Atorvastatin Calcium (Lipitor) 20 mg BEDTIME ORAL 04/12/20 21:00 07/11/20 20:59 Cefepime HCl 2 gm/ Dextrose 110 ml @ 220 mls/hr EVERY 12 HOURS IV 04/12/20 21:00 04/19/20 20:59 04/13/20 08:48 Dextrose (Dextrose 50%) 25 ml Q30M PRN IV Hypoglycemia 04/12/20 15:00 07/11/20 14:59 Dextrose (Dextrose 50%) 50 ml Q30M PRN IV Hypoglycemia 04/12/20 15:00 07/11/20 14:59 Heparin Sodium (Porcine) (Heparin 5000 units/ml) 5,000 units EVERY 12 HOURS SUBQ 04/12/20 21:00 05/27/20 20:59 04/13/20 08:53 Insulin Aspart (NovoLOG) BEFORE MEALS AND HS SUBQ 04/12/20 16:30 07/11/20 16:29 Nitroglycerin (Ntg) 0.4 mg Q5M PRN SL Prn Chest Pain 04/12/20 15:00 05/12/20 14:59 Ondansetron HCl (Zofran) 4 mg Q6H PRN IVP Nausea & Vomiting 04/12/20 15:00 05/12/20 14:59 Polyethylene Glycol (Miralax) 17 gm DAILYPRN PRN ORAL Constipation 04/12/20 15:00 05/12/20 14:59 Temazepam (Restoril) 15 mg HSPRN PRN ORAL Insomnia 04/12/20 15:00 04/19/20 14:59 Vancomycin HCl (Vanco rx to dose) 1 ea DAILY PRN MISC . 04/12/20 15:30 05/12/20 15:29 Vancomycin HCl 750 mg/Sodium Chloride 275 ml @ 183.333 mls/hr Q12HR IVPB 04/12/20 21:00 04/17/20 20:59 04/13/20 09:52 Genesis Omalley M.D. April 13, 2020 15:50
[2020-04-13 16:00] VITALS: BP 108/56
--- NOTE | 2020-04-13 16:00 | NUR ---
NURSE NOTES: DR DAVIES NOTIFIED PT IS COUGHING ON CURRENT DIET. NEW ORDER FOR PUREED MOIST WITH NECTAR THICK LIQUIDS AND SPEECH THERAPY EVAL. ORDERS ENTERED. PT IN NO APPARENT DISTRESS AT THIS TIME. IN HIGH GOMEZ'S POSITION WITH BED IN LOWEST POSITION, BEDSIDE RAILS X3 RAISED. BED ALARM ON. WILL CONTINUE TO MONITOR.
--- NOTE | 2020-04-13 16:33 | Consultation ---
History of Present Illness General Date patient seen: April 13, 2020 Chief Complaint: Fever Present Illness HPI 74 year old male shelter resident with multiple medical comorbidities presented to [facility] [place] for evaluation of fever. noted to have lactic acidosis. on admission identified to have multiple wounds requiring care. surgery called to evaluate and assist with care. patient seen, chart reviewed, patient examined. limited history reviewed chart Allergies: Coded Allergies: No Known Allergies (Unverified , 04/12/20) Medication History Scheduled Aspirin* (Aspir 81*), 81 MG ORAL DAILY, (Reported) Atorvastatin Calcium* (Lipitor*), 20 MG ORAL BEDTIME, (Reported) Bisacodyl* (Dulcolax*), 10 MG ORAL DAILY, (Reported) Docusate Sodium* (Colace*), 100 MG ORAL DAILY, (Reported) Magnesium Hydroxide* (Milk Of Magnesia*), 30 ML ORAL DAILY, (Reported) Metformin Hcl* (Glucophage*), 500 MG ORAL DAILY, (Reported) Multivitamin With Minerals (Multivitamins With Minerals*), 1 TAB ORAL DAILY, ( Reported) Na Phos,M-B/Na Phos,Di-Ba* (Fleet Enema*), 133 ML RECTAL DAILY, (Reported) [place]-3 Fatty Acids/Fish Oil* (Fish Oil 1,000 Mg Softgel*), 1 CAP ORAL DAILY, ( Reported) Scheduled PRN Acetaminophen* (Tylenol Extra Strength*), 325 MG ORAL Q6H PRN for Mild Pain/ Temp > 100.5, (Reported) Melatonin (Melatonin), 3 MG ORAL BEDTIME PRN for Insomnia, (Reported) Miscellaneous Medications Insulin Regular, Human (Humulin R), Unknown Dose SUBQ, (Reported) Linagliptin (Tradjenta), 5 MG PO, (Reported) Patient History Limited by: medical condition History Provided By: Medical Record, PMD Healthcare decision maker Resuscitation status Advanced Directive on File Past Medical/Surgical History Past Medical/Surgical History: (1) Psychosis (2) Fever (3) Diabetes mellitus (4) COPD (chronic obstructive pulmonary disease) (5) Nosocomial pneumonia (6) Suspected 2019-nCo infection Review of Systems ROS Narrative limited given baseline Physical Exam General Appearance: no apparent distress, alert Lines, tubes and drains: peripheral HEENT: mucous membranes moist Neck: supple, normal inspection Respiratory/Chest: normal breath sounds, no respiratory distress, no accessory muscle use Cardiovascular/Chest: regular rhythm Abdomen: soft, no organomegaly, no mass Extremities: normal capillary refill, inflammation Skin Exam: warm/dry Neurologic: other Last 24 Hour Vital Signs Date Time Temp Pulse Resp B/P (MAP) Pulse Ox O2 Delivery O2 Flow Rate FiO2 04/13/20 11:57 98.4 70 18 104/57 (73) 96 04/13/20 09:00 Room Air 04/13/20 08:00 97.8 77 20 103/56 (72) 97 04/13/20 04:00 98.1 86 18 98/61 (73) 93 04/12/20 21:00 Room Air 04/12/20 20:27 98.5 84 18 126/53 (77) 93 04/12/20 17:01 Room Air Intake and Output 04/12/20 04/13/20 19:00 07:00 Intake Total 2445 ml 586.666 ml Balance 2445 ml 586.666 ml Intake Oral 60 ml IV Total 2385 ml 586.666 ml # Voids 3 # Bowel Movements 1 1 Laboratory Tests Test 04/12/20 23:30 04/13/20 05:00 Urine Color Pale yellow Urine Appearance Clear Urine pH 7 (4.5-8.0) Urine Specific [place] 1.010 (1.005-1.035) Urine Protein 1+ (NEGATIVE) H Urine Glucose (UA) Negative (NEGATIVE) Urine Ketones Negative (NEGATIVE) Urine Blood Negative (NEGATIVE) Urine Nitrite Negative (NEGATIVE) Urine Bilirubin Negative (NEGATIVE) Urine Urobilinogen Normal MG/DL (0.0-1.0) Urine Leukocyte Esterase Negative (NEGATIVE) Urine RBC 0-2 /HPF (0 - 0) H Urine WBC 0 /HPF (0 - 0) Urine Squamous Epithelial Cells None /LPF (NONE/OCC) Urine Bacteria None /HPF (NONE) White Blood Count 6.9 K/UL (4.8-10.8) Red Blood Count 4.18 M/UL (4.70-6.10) L Hemoglobin 11.8 G/DL (14.2-18.0) L Hematocrit 34.0 % (42.0-52.0) L Mean Corpuscular Volume 81 FL (80-99) Mean Corpuscular Hemoglobin 28.2 PG (27.0-31.0) Mean Corpuscular Hemoglobin Concent 34.7 G/DL (32.0-36.0) Red Cell Distribution Width 12.0 % (11.6-14.8) Platelet Count 280 K/UL (150-450) Mean Platelet Volume 5.1 FL (6.5-10.1) L Neutrophils (%) (Auto) 59.2 % (45.0-75.0) Lymphocytes (%) (Auto) 35.0 % (20.0-45.0) Monocytes (%) (Auto) 4.3 % (1.0-10.0) Eosinophils (%) (Auto) 1.2 % (0.0-3.0) Basophils (%) (Auto) 0.3 % (0.0-2.0) Sodium Level 138 MMOL/L (136-145) Potassium Level 3.2 MMOL/L (3.5-5.1) L Chloride Level 103 MMOL/L (98-107) Carbon Dioxide Level 27 MMOL/L (21-32) Anion Gap 8 mmol/L (5-15) Blood Urea Nitrogen 10 mg/dL (7-18) Creatinine 0.9 MG/DL (0.55-1.30) Estimat Glomerular Filtration Rate > 60 mL/min (>60) Glucose Level 103 MG/DL (74-106) Calcium Level 7.4 MG/DL (8.5-10.1) L Total Bilirubin 0.5 MG/DL (0.2-1.0) Aspartate Amino Transf (AST/SGOT) 25 U/L (15-37) Alanine Aminotransferase (ALT/SGPT) 21 U/L (12-78) Alkaline Phosphatase 70 U/L (46-116) Total Protein 6.2 G/DL (6.4-8.2) L Albumin 2.5 G/DL (3.4-5.0) L Globulin 3.7 g/dL Albumin/Globulin Ratio 0.7 (1.0-2.7) L Height (Feet): 5 Height (Inches): 8.00 Weight (Pounds): 140 Medications Current Medications Medications (Trade) Dose Ordered Sig/Rodney Route PRN Reason Start Time Stop Time Status Last Admin Dose Admin Acetaminophen (Tylenol) 650 mg Q4H PRN ORAL fever 04/12/20 15:00 05/12/20 14:59 Albuterol/ Ipratropium (Combivent Respimat) 1 puff Q4H PRN INH Shortness of Breath 04/12/20 15:33 05/12/20 15:32 Atorvastatin Calcium (Lipitor) 20 mg BEDTIME ORAL 04/12/20 21:00 07/11/20 20:59 Cefepime HCl 2 gm/ Dextrose 110 ml @ 220 mls/hr EVERY 12 HOURS IV 04/12/20 21:00 04/19/20 20:59 04/13/20 08:48 Dextrose (Dextrose 50%) 25 ml Q30M PRN IV Hypoglycemia 04/12/20 15:00 07/11/20 14:59 Dextrose (Dextrose 50%) 50 ml Q30M PRN IV Hypoglycemia 04/12/20 15:00 07/11/20 14:59 Heparin Sodium (Porcine) (Heparin 5000 units/ml) 5,000 units EVERY 12 HOURS SUBQ 04/12/20 21:00 05/27/20 20:59 04/13/20 08:53 Insulin Aspart (NovoLOG) BEFORE MEALS AND HS SUBQ 04/12/20 16:30 07/11/20 16:29 Nitroglycerin (Ntg) 0.4 mg Q5M PRN SL Prn Chest Pain 04/12/20 15:00 05/12/20 14:59 Ondansetron HCl (Zofran) 4 mg Q6H PRN IVP Nausea & Vomiting 04/12/20 15:00 05/12/20 14:59 Polyethylene Glycol (Miralax) 17 gm DAILYPRN PRN ORAL Constipation 04/12/20 15:00 05/12/20 14:59 Temazepam (Restoril) 15 mg HSPRN PRN ORAL Insomnia 04/12/20 15:00 04/19/20 14:59 Vancomycin HCl (Vanco rx to dose) 1 ea DAILY PRN MISC . 04/12/20 15:30 05/12/20 15:29 Vancomycin HCl 750 mg/Sodium Chloride 275 ml @ 183.333 mls/hr Q12HR IVPB 04/12/20 21:00 04/17/20 20:59 04/13/20 09:52 Assessment/Plan Problem List: (1) Psychosis ICD Codes: F29 - Unspecified psychosis not due to a substance or known physiological condition SNOMED: 76960929 (2) Fever ICD Codes: R50.9 - Fever, unspecified SNOMED: 195942662 Qualifiers: Qualified Codes: R50.9 - Fever, unspecified (3) Diabetes mellitus ICD Codes: E11.9 - Type 2 diabetes mellitus without complications SNOMED: 49925357 (4) COPD (chronic obstructive pulmonary disease) ICD Codes: J44.9 - Chronic obstructive pulmonary disease, unspecified SNOMED: 03923747 (5) Nosocomial pneumonia ICD Codes: J18.9 - Pneumonia, unspecified organism; Y95 - Nosocomial condition SNOMED: 965251546 (6) Suspected 2019-nCoV infection ICD Codes: Z20.828 - Contact with and (suspected) exposure to other viral communicable diseases SNOMED: 836580014 (7) Incontinence associated dermatitis Assessment & Plan: 74-year-old male currently admitted for fever work-up. On admission identified to have low body weight BMI 21 low albumin Having continence and identified to have abnormality around the sacral buttock region. On evaluation identified to be con associated dermatitis. Currently has a condom cath and good urine output. Bowel movements monitor closely to ensure and help with clean up Mental status makes it difficult for patient to comfortably turn side to side and even with assistance he moves around a lot. We will monitor closely to ensure improvement. Nutritional supplementation Labs noted We will follow with recommendations Participate patient's care ICD Codes: L30.8 - Other specified dermatitis; R32 - Unspecified urinary incontinence SNOMED: 586183992 Chris Morocho April 13, 2020 16:32
--- NOTE | 2020-04-13 18:15 | History and Physical Report ---
DATE OF ADMISSION: 04/12/2020 DATE AND TIME SEEN: 04/13/2020 at 12 noon. CONSULTANTS: 1. Gabi Stewart MD. 2. Dylan Vigil MD. 3. Cristine Duenas MD. CHIEF COMPLAINT: Fever, confusion, weakness. BRIEF HISTORY: This is a 74-year-old male from [facility], presented with above-mentioned diagnoses, admitted to medical floor for further treatment. Currently, calm in bed, sleeping not talking much. PAST MEDICAL HISTORY: Includes encephalopathy, malnutrition, COPD, diabetes, CKD, weakness, PVD, schizophrenia. PAST SURGICAL HISTORY: Unknown. MEDICATIONS: Include vancomycin, atorvastatin, cefepime, insulin, albuterol, Zofran, temazepam, nitroglycerin. ALLERGIES: Denies. SOCIAL HISTORY: Unable to obtain. Patient is very lethargic. PHYSICAL EXAMINATION: GENERAL: Calm in bed, lethargic, sleepy, not talking much. VITAL SIGNS: Temperature 98 degrees, pulse 70, respirations 18, blood pressure 104/57. HEENT: Normocephalic, atraumatic. NECK: Trachea midline. CARDIOVASCULAR: No peripheral edema. PULMONARY: Breathing comfortably on room air. ABDOMEN: No apparent wounds. EXTREMITIES: Show no cyanosis or clubbing. LABORATORY DATA: Labs at this time show hemoglobin and hematocrit 11/34, otherwise CBC is normal. BMP shows potassium 3.2. Albumin 2.5. Otherwise normal. Urinalysis 1+ protein, otherwise normal. ASSESSMENT: 1. Fever. 2. Suspect COVID. 3. Pneumonia. 4. Sepsis. 5. Confusion. 6. Anemia. 7. Encephalopathy. 8. Malnutrition. 9. COPD. 10. Diabetes. 11. CKD. 12. Weakness. 13. PVD. 14. Schizophrenia. PLAN: 1. O2, pulmonary treatment. 2. Antibiotics per Infectious Disease. 3. Blood pressure, blood sugar, pain control. 4. Dietary followup. 5. Psych treatment. 6. PT, dietary eval. 7. CBC, BMP in the morning. Prem Parnell D.O. DR: ELAN JOB#: [id number] CC:
--- NOTE | 2020-04-13 19:20 | NUR ---
HAND-OFF: Report given to Asia VANCE RN.
--- NOTE | 2020-04-13 19:30 | NUR ---
NURSE NOTES: RECEIVED PATIENT FROM KRISSRN AND JEANIE CASON. PATIENT IS AWAKE, AAOX1, AMHARIC SPEAKING. PATIENT IS ON R.A, NO ACUTE DISTRESS NOTED. CONDOM CATH INTACT, DRAINING WELL, ANCHOR IN PLACE. WOUND DRESSINGS ON SACRAL AND HEELS INTACT AND DRY. IV ON RIGHT HAND 20G, SL, INTACT AND PATENT. BED IS LOCKED AND LOW, BED ALARMS ACTIVE, SIDE RAILS UPX2 AND CALL LIGHT IS WITHIN REACH. WILL CONTINUE TO MONITOR.
[2020-04-13 20:00] VITALS: BP 97/54
--- NOTE | 2020-04-13 21:00 | NUR ---
NURSE NOTES: PATIENT FINISHED 80% OF DINNER. 1:1 FEEDER. ASPIRATION PRECAUTIONS IMPLEMENTED. HOB >30 DEGREES.
[2020-04-13] MEDS: Atorvastatin 20mg tab ORAL SCH (21:34)
[2020-04-14] VITALS: BP 97/59
[2020-04-14 04:00] VITALS: BP 95/55
[2020-04-14 05:22] LABS: BASOPHILS % (AUTO) 0.5 % (0.0-2.0); EOSINOPHILS % (AUTO) 2.8 % (0.0-3.0); HEMATOCRIT 33.7 % (42.0-52.0); HEMOGLOBIN 11.8 G/DL (14.2-18.0); MEAN CORPUSCULAR VOLUME 81 FL (80-99); MONOCYTES % (AUTO) 8.5 % (1.0-10.0); NEUTROPHILS % (AUTO) 45.2 % (45.0-75.0); PLATELET COUNT 346 K/UL (150-450); RED BLOOD COUNT 4.18 M/UL (4.70-6.10); RED CELL DISTRIBUTION WIDTH 11.8 % (11.6-14.8); WHITE BLOOD COUNT 5.5 K/UL (4.8-10.8)
[2020-04-14 06:13] LABS: PHOSPHORUS 2.8 MG/DL (2.5-4.9)
[2020-04-14 06:16] LABS: ALANINE AMINOTRANSFERASE 20 U/L (12-78); ALBUMIN 2.6 G/DL (3.4-5.0); ALBUMIN/GLOBULIN RATIO 0.6 (1.0-2.7); ALKALINE PHOSPHATASE 70 U/L (46-116); ANION GAP 10 mmol/L (5-15); ASPARTATE AMINO TRANSFERASE 30 U/L (15-37); BILIRUBIN,TOTAL 0.5 MG/DL (0.2-1.0); BLOOD UREA NITROGEN 10 mg/dL (7-18); CARBON DIOXIDE 25 MMOL/L (21-32); CHLORIDE 104 MMOL/L (98-107); CREATININE 0.8 MG/DL (0.55-1.30); POTASSIUM 3.1 MMOL/L (3.5-5.1); SODIUM 139 MMOL/L (136-145)
[2020-04-14] MEDS: NovoLOG Insulin Flexpen SUBQ SCH ×4 (06:30→21:12)
--- NOTE | 2020-04-14 07:48 | NUR ---
HAND-OFF: Report given to JEANIE Grimaldo. Patient is in stable condition.
[2020-04-14 08:00] VITALS: BP 102/62
--- NOTE | 2020-04-14 08:06 | NUR ---
NURSE NOTES: Report received from Zoe RN. Patient seen on rounds, AXOx 0, non-verbal, but able to follow simple commands, not in distress, tolerating room air, no outward sx of pain. PIV on left forearm patent and intact. Condom cath secured and draining well. Bed low and locked, siderails up x2, zone alarms on 1, will continue to monitor.
--- NOTE | 2020-04-14 09:20 | General Progress Note ---
Assessment/Plan Problem List: (1) Diabetes ICD Codes: E11.9 - Type 2 diabetes mellitus without complications SNOMED: 21580712 (2) CKD (chronic kidney disease) ICD Codes: N18.9 - Chronic kidney disease, unspecified SNOMED: 603891038 (3) Weak ICD Codes: R53.1 - Weakness SNOMED: 90197644 (4) PVD (peripheral vascular disease) ICD Codes: I73.9 - Peripheral vascular disease, unspecified SNOMED: 510392517 (5) Psychosis ICD Codes: F29 - Unspecified psychosis not due to a substance or known physiological condition SNOMED: 06400694 (6) Diabetes mellitus ICD Codes: E11.9 - Type 2 diabetes mellitus without complications SNOMED: 76374671 (7) COPD (chronic obstructive pulmonary disease) ICD Codes: J44.9 - Chronic obstructive pulmonary disease, unspecified SNOMED: 75599879 (8) Suspected 2019-nCoV infection ICD Codes: Z20.828 - Contact with and (suspected) exposure to other viral communicable diseases SNOMED: 024124644 (9) Nosocomial pneumonia ICD Codes: J18.9 - Pneumonia, unspecified organism; Y95 - Nosocomial condition SNOMED: 067879281 Status: unchanged Assessment/Plan: o2 pulm tx abx pt diet cbc bmp am Subjective Constitutional: Reports: weakness Allergies: Coded Allergies: No Known Allergies (Unverified , 04/12/20) All Systems: reviewed and negative except above Subjective sleepy calm Objective Last 24 Hour Vital Signs Date Time Temp Pulse Resp B/P (MAP) Pulse Ox O2 Delivery O2 Flow Rate FiO2 04/14/20 04:00 97.7 78 20 95/55 (68) 94 04/14/20 00:00 98.1 83 20 97/59 (72) 90 04/13/20 21:00 Room Air 04/13/20 20:00 97.4 80 20 97/54 (68) 93 04/13/20 16:00 98.7 74 20 108/56 (73) 98 04/13/20 11:57 98.4 70 18 104/57 (73) 96 Intake and Output 04/13/20 04/14/20 18:59 06:59 Intake Total 160 ml 586.666 ml Output Total 800 ml 400 ml Balance -640 ml 186.666 ml Intake Oral 50 ml IV Total 110 ml 586.666 ml Output Urine Total 800 ml 400 ml # Bowel Movements 1 Laboratory Tests 04/14/20 05:00: White Blood Count 5.5, Red Blood Count 4.18L, Hemoglobin 11.8L, Hematocrit 33.7L , Mean Corpuscular Volume 81, Mean Corpuscular Hemoglobin 28.3, Mean Corpuscular Hemoglobin Concent 35.1, Red Cell Distribution Width 11.8, Platelet Count 346, Mean Platelet Volume 4.9L, Neutrophils (%) (Auto) 45.2, Lymphocytes ( %) (Auto) 43.0, Monocytes (%) (Auto) 8.5, Eosinophils (%) (Auto) 2.8, Basophils (%) (Auto) 0.5, Erythrocyte Sedimentation Rate 48H, Sodium Level 139, Potassium Level 3.1L, Chloride Level 104, Carbon Dioxide Level 25, Anion Gap 10, Blood Urea Nitrogen 10, Creatinine 0.8, Estimat Glomerular Filtration Rate > 60, Glucose Level 105, Calcium Level 8.0L, Phosphorus Level 2.8, Magnesium Level 1.9 , Total Bilirubin 0.5, Aspartate Amino Transf (AST/SGOT) 30, Alanine Aminotransferase (ALT/SGPT) 20, Alkaline Phosphatase 70, C-Reactive Protein, Quantitative 7.1H, Total Protein 6.6, Albumin 2.6L, Globulin 4.0, Albumin/ Globulin Ratio 0.6L 04/14/20 08:30: Vancomycin Level Trough 6.7 Height (Feet): 5 Height (Inches): 8.00 Weight (Pounds): 140 General Appearance: lethargic EENT: normal ENT inspection Neck: normal alignment Cardiovascular: normal rate, regular rhythm Respiratory/Chest: no respiratory distress, no accessory muscle use Extremities: normal inspection Skin: normal pigmentation Prem Parnell DO April 14, 2020 09:20
[2020-04-14] MEDS: Memantine 5 MG TAB ORAL SCH ×2 (09:27→17:05)
[2020-04-14] MEDS: Heparin 5000 units/ml inj SUBQ SCH ×2 (09:27→21:04)
[2020-04-14] MEDS: Cefepime HCl 2 GM in D5W 110 ML IV SCH ×2 (09:27→20:50)
[2020-04-14] MEDS ORDERED: Sodium Chloride for KCL Premix X 4hrs IV SCH (10:00)
[2020-04-14] MEDS: Vancomycin 1 GM in NS 275 ML IVPB SCH ×2 (10:18→22:52)
--- NOTE | 2020-04-14 11:37 | NUR ---
BEDSIDE SWALLOW EVALUATION. (Please see care activity section for complete report) PATIENT REFERRED FOR BEDSIDE SWALLOW EVALUATION BY DR. DAVIES DYSPHAGIA RISKS FOR THIS 74 Y.O. MALE: ACUTE ISSUES Fever, Nosocomial pneumonia (CXR: Bilateral interstitial and airspace infiltrates, possibly representing pneumonia, as described); COPD; Suspected 2019-CoV infection H/O Psychiatric d/o (Schizophrenia); DM2; Encephalopathy; Malnutrition; CKD; weakness; PVD; Hypokalemia; Ileus; Patient has a h/o oropharyngeal dysphagia (dx on 10/08/19); GERD; Hyperlipidemia; Major depressive disorder RELEVANT MEDS: Ativan (Benzodiazepine); Zofran (Nausea); Restoril (Insomnia) VITALS ON ROOM AIR: HR: 78 RR: 20 SP02: 94% POLST: Does not clarify Patients desire for alternative nutrition/hydration, Patient is a full code. PLOF: Patient is a resident of [facility], previously consumed puree solids with thin liquids, CCHO. Upon admission to [facility], Patient noted to be coughing on Mechanical soft-finely chopped and thin liquids, therefore, night RN notified MD, downgraded Patient to puree moist with nectar thick liquids and referred Patient to HAND ETCHER for bedside swallow evaluation. RN reports Patient did not exhibit any overt s/s of aspiration with crushed medications with puree apple sauce. Patient seen at bedside, primarily language is Telugu. Patient is able to rouse to tactile and verbal cues; Has natural dentition with missing teeth, oral hygiene is slightly reduced. Patient is unable to verbally communicate wants and needs, Patient does follow very simple 1-step directions when given verbal and tactile cues. Oral secretion management is functional. Patient is on room air and VSS for the duration of the session. INITIAL IMPRESSIONS: Mild to moderate oropharyngeal dysphagia with increased oral preparation and oropharyngeal transit times, oral ROM and coordination appears apraxic, compounded by cognitive behavioral deficits (AMS/confusion), fatigue, and reduced respiratory strength (per CXR on 04/12/20: Bilateral interstitial and airspace infiltrates, possibly representing pneumonia, as described) Patient additionally has a H/O oropharyngeal dysphagia and psychiatric d/o. PO TRIALS: -Given thin liquids via teaspoon, poor oral motor control of liquids, probable posterior premature spillage resulting in immediate overt s/s of aspiration, cough strength is intact. -Given [place] Thick Liquids and Puree solids with no overt s/s of aspiration HIGH RISK FOR SILENT ASPIRATION AND POOR PO INTAKE DUE TO REDUCED ALERTNESS (CONFUSION/AMS), H/O DYSPHAGIA AND MALNUTRITION. PATIENT ADDITIONALLY REQUIRES 1:1 FEEDING AND ASSISTANCE WITH ALL ADLS. RECOMMENDATIONS: 1. Continue Puree Solids with [place] Thick Liquids, CCHO (per RD at [facility]) Patient requires 1:1 feeding with all PO while implementing aspiration precautions posted above HOB 2. HAND ETCHER plans to f/u for dysphagia management and tx 3x and week x 1 week. 3. Patient requires oral care BID w/ suction. HAND ETCHER made RN aware of results, recommendations, and POC. HAND ETCHER plans to follow up for dysphagia management and tx.
[2020-04-14 12:00] VITALS: BP 109/69
--- NOTE | 2020-04-14 15:16 | Pulmonology Progress Note ---
Subjective ROS Limited/Unobtainable: No Constitutional: Reports: no symptoms HEENT: Repors: no symptoms Respiratory: Reports: no symptoms Allergies: Coded Allergies: No Known Allergies (Unverified , 04/12/20) All Systems: reviewed and negative except above Objective Last 24 Hour Vital Signs Date Time Temp Pulse Resp B/P (MAP) Pulse Ox O2 Delivery O2 Flow Rate FiO2 04/14/20 15:12 Room Air 04/14/20 09:00 Room Air 04/14/20 04:00 97.7 78 20 95/55 (68) 94 04/14/20 00:00 98.1 83 20 97/59 (72) 90 04/13/20 21:00 Room Air 04/13/20 20:00 97.4 80 20 97/54 (68) 93 04/13/20 16:00 98.7 74 20 108/56 (73) 98 Intake and Output 04/13/20 04/14/20 19:00 07:00 Intake Total 160 ml 586.666 ml Output Total 800 ml 400 ml Balance -640 ml 186.666 ml Intake Oral 50 ml IV Total 110 ml 586.666 ml Output Urine Total 800 ml 400 ml # Bowel Movements 1 General Appearance: WD/WN, no acute distress HEENT: normocephalic, atraumatic, PERRL Respiratory: chest wall non-tender, lungs clear Cardiovascular: normal rate Abdomen: normal bowel sounds, soft, non tender, no scars Extremities: no cyanosis Skin: no rash 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 Complete 04/12/20 12:00 Nasopharynx Coronavirus COVID-19 PCR (PADMAJA) - Final Complete 04/12/20 23:30 Indwelling Cath Urine Culture - Preliminary NO GROWTH Resulted 04/12/20 12:00 Rectum VRE Culture - Final NO VANCOMYCIN RESISTANT ENTEROCOCCUS ... Complete 04/12/20 12:00 Rectum - Final NO CARBAPENEM-RESISTANT ENTEROBACTERI... Complete Laboratory Tests 04/14/20 05:00: White Blood Count 5.5, Red Blood Count 4.18L, Hemoglobin 11.8L, Hematocrit 33.7L , Mean Corpuscular Volume 81, Mean Corpuscular Hemoglobin 28.3, Mean Corpuscular Hemoglobin Concent 35.1, Red Cell Distribution Width 11.8, Platelet Count 346, Mean Platelet Volume 4.9L, Neutrophils (%) (Auto) 45.2, Lymphocytes ( %) (Auto) 43.0, Monocytes (%) (Auto) 8.5, Eosinophils (%) (Auto) 2.8, Basophils (%) (Auto) 0.5, Erythrocyte Sedimentation Rate 48H, Sodium Level 139, Potassium Level 3.1L, Chloride Level 104, Carbon Dioxide Level 25, Anion Gap 10, Blood Urea Nitrogen 10, Creatinine 0.8, Estimat Glomerular Filtration Rate > 60, Glucose Level 105, Calcium Level 8.0L, Phosphorus Level 2.8, Magnesium Level 1.9 , Total Bilirubin 0.5, Aspartate Amino Transf (AST/SGOT) 30, Alanine Aminotransferase (ALT/SGPT) 20, Alkaline Phosphatase 70, C-Reactive Protein, Quantitative 7.1H, Total Protein 6.6, Albumin 2.6L, Globulin 4.0, Albumin/ Globulin Ratio 0.6L 04/14/20 08:30: Vancomycin Level Trough 6.7 Current Medications Medications (Trade) Dose Ordered Sig/Rodney Route PRN Reason Start Time Stop Time Status Last Admin Dose Admin Acetaminophen (Tylenol) 650 mg Q4H PRN ORAL fever 04/12/20 15:00 05/12/20 14:59 Albuterol/ Ipratropium (Combivent Respimat) 1 puff Q4H PRN INH Shortness of Breath 04/12/20 15:33 05/12/20 15:32 Atorvastatin Calcium (Lipitor) 20 mg BEDTIME ORAL 04/12/20 21:00 07/11/20 20:59 04/13/20 21:34 Cefepime HCl 2 gm/ Dextrose 110 ml @ 220 mls/hr EVERY 12 HOURS IV 04/12/20 21:00 04/19/20 20:59 04/14/20 09:27 Dextrose (Dextrose 50%) 25 ml Q30M PRN IV Hypoglycemia 04/12/20 15:00 07/11/20 14:59 Dextrose (Dextrose 50%) 50 ml Q30M PRN IV Hypoglycemia 04/12/20 15:00 07/11/20 14:59 Heparin Sodium (Porcine) (Heparin 5000 units/ml) 5,000 units EVERY 12 HOURS SUBQ 04/12/20 21:00 05/27/20 20:59 04/14/20 09:27 Insulin Aspart (NovoLOG) BEFORE MEALS AND HS SUBQ 04/12/20 16:30 07/11/20 16:29 Lorazepam (Ativan) 0.5 mg Q6H PRN ORAL For Anxiety 04/14/20 06:15 04/21/20 06:14 Memantine (Namenda) 5 mg BID ORAL 04/14/20 09:00 05/14/20 08:59 04/14/20 09:27 Nitroglycerin (Ntg) 0.4 mg Q5M PRN SL Prn Chest Pain 04/12/20 15:00 05/12/20 14:59 Ondansetron HCl (Zofran) 4 mg Q6H PRN IVP Nausea & Vomiting 04/12/20 15:00 05/12/20 14:59 Polyethylene Glycol (Miralax) 17 gm DAILYPRN PRN ORAL Constipation 04/12/20 15:00 05/12/20 14:59 Temazepam (Restoril) 15 mg HSPRN PRN ORAL Insomnia 04/12/20 15:00 04/19/20 14:59 Vancomycin HCl (Vanco rx to dose) 1 ea DAILY PRN MISC . 04/12/20 15:30 05/12/20 15:29 Vancomycin HCl 1 gm/Sodium Chloride 275 ml @ 183.708 mls/hr Q12HR@1000,2200 IVPB 04/14/20 10:00 04/19/20 09:59 04/14/20 10:18 Assessment/Plan Problems: (1) Fever (2) Nosocomial pneumonia (3) Suspected 2019-nCoV infection (4) COPD (chronic obstructive pulmonary disease) (5) Diabetes mellitus (6) Psychosis Assessment/Plan afebrile now K supplement doing ok fallon culture iv abx f/u wbc Olivia 19, is negative sliding scale diabetic diet Gabi Stewart MD April 14, 2020 15:16
--- NOTE | 2020-04-14 15:37 | NUR ---
P.T Note: P.T evaluation completed. Pt is alert, however essentially non verbal and not following simple commands. Pt is non engaging in functional activities: pt unable to sit and stand and dependent/total assist for bed mobilities and transfer activities. Pt already at baseline function and not a candidate for skilled P.T services. W[facility]arkins[facility]. Thank you for this referral.
--- NOTE | 2020-04-14 15:46 | Surgery Progress Note ---
Surgery Progress Note Subjective Additional Comments Condom cath still in place. Moving around a lot. Great nursing care Micro noted labs reviewed ESR elevated no leukocytosis Objective Last 24 Hour Vital Signs Date Time Temp Pulse Resp B/P (MAP) Pulse Ox O2 Delivery O2 Flow Rate FiO2 04/14/20 15:12 Room Air 04/14/20 09:00 Room Air 04/14/20 04:00 97.7 78 20 95/55 (68) 94 04/14/20 00:00 98.1 83 20 97/59 (72) 90 04/13/20 21:00 Room Air 04/13/20 20:00 97.4 80 20 97/54 (68) 93 04/13/20 16:00 98.7 74 20 108/56 (73) 98 I&O Intake and Output 04/13/20 04/14/20 19:00 07:00 Intake Total 160 ml 586.666 ml Output Total 800 ml 400 ml Balance -640 ml 186.666 ml Intake Oral 50 ml IV Total 110 ml 586.666 ml Output Urine Total 800 ml 400 ml # Bowel Movements 1 Dressing: other Wound: clean, dry, other Drains: other Cardiovascular: RSR Respiratory: clear Abdomen: soft, flat, non-tender, present bowel sounds Extremities: no edema, no tenderness, no cyanosis Laboratory Tests Test 04/14/20 05:00 04/14/20 08:30 White Blood Count 5.5 K/UL (4.8-10.8) Red Blood Count 4.18 M/UL (4.70-6.10) L Hemoglobin 11.8 G/DL (14.2-18.0) L Hematocrit 33.7 % (42.0-52.0) L Mean Corpuscular Volume 81 FL (80-99) Mean Corpuscular Hemoglobin 28.3 PG (27.0-31.0) Mean Corpuscular Hemoglobin Concent 35.1 G/DL (32.0-36.0) Red Cell Distribution Width 11.8 % (11.6-14.8) Platelet Count 346 K/UL (150-450) Mean Platelet Volume 4.9 FL (6.5-10.1) L Neutrophils (%) (Auto) 45.2 % (45.0-75.0) Lymphocytes (%) (Auto) 43.0 % (20.0-45.0) Monocytes (%) (Auto) 8.5 % (1.0-10.0) Eosinophils (%) (Auto) 2.8 % (0.0-3.0) Basophils (%) (Auto) 0.5 % (0.0-2.0) Erythrocyte Sedimentation Rate 48 MM/HR (0-20) H Sodium Level 139 MMOL/L (136-145) Potassium Level 3.1 MMOL/L (3.5-5.1) L Chloride Level 104 MMOL/L (98-107) Carbon Dioxide Level 25 MMOL/L (21-32) Anion Gap 10 mmol/L (5-15) Blood Urea Nitrogen 10 mg/dL (7-18) Creatinine 0.8 MG/DL (0.55-1.30) Estimat Glomerular Filtration Rate > 60 mL/min (>60) Glucose Level 105 MG/DL (74-106) Calcium Level 8.0 MG/DL (8.5-10.1) L Phosphorus Level 2.8 MG/DL (2.5-4.9) Magnesium Level 1.9 MG/DL (1.8-2.4) Total Bilirubin 0.5 MG/DL (0.2-1.0) Aspartate Amino Transf (AST/SGOT) 30 U/L (15-37) Alanine Aminotransferase (ALT/SGPT) 20 U/L (12-78) Alkaline Phosphatase 70 U/L (46-116) C-Reactive Protein, Quantitative 7.1 mg/dL (0.00-0.90) H Total Protein 6.6 G/DL (6.4-8.2) Albumin 2.6 G/DL (3.4-5.0) L Globulin 4.0 g/dL Albumin/Globulin Ratio 0.6 (1.0-2.7) L Vancomycin Level Trough 6.7 ug/mL (5.0-12.0) Plan Problems: (1) Psychosis (2) Fever (3) Diabetes mellitus (4) COPD (chronic obstructive pulmonary disease) (5) Nosocomial pneumonia (6) Suspected 2019-nCoV infection (7) Incontinence associated dermatitis Assessment & Plan: 74-year-old male currently admitted for fever work-up. On admission identified to have low body weight BMI 21 low albumin Having continence and identified to have abnormality around the sacral buttock region. On evaluation identified to be con associated dermatitis. Currently has a condom cath and good urine output. Bowel movements monitor closely to ensure and help with clean up Mental status makes it difficult for patient to comfortably turn side to side and even with assistance he moves around a lot. We will monitor closely to ensure improvement. Nutritional supplementation Labs noted We will follow with recommendations Participate patient's care Chris Morocho April 14, 2020 15:46
[2020-04-14 16:00] VITALS: BP 116/67
--- NOTE | 2020-04-14 16:03 | NUR ---
CASE MANAGEMENT:REVIEW SI;NOSOCOMIAL PNEUMONIA. COPD. DM. 98.1 83 20 95/55 90% ON RA IS;VANCOMYCIN IV Q12 HRS KCL IV IVF NS BOLUS HEPARIN SUBQ BID MED SURG STATUS DCP;FROM [facility] CONV
--- NOTE | 2020-04-14 16:10 | Infectious Diseases Prog Note ---
Assessment/Plan Assessment/Plan Assessment: PNA - at [facility] -CXR: Bilateral interstitial and airspace infiltrates, possibly representing pneumonia, as described -sp cx p Fever (FAST FOOD COOK at [facility] up to 101.6)- afebrile here so far- r/o COVID19 (pt from SNF with COVID outbreak) -04/12 SARS-COV2 neg No leukocytosis -u/a neg; ucx NTD -Bcx NTD Dm2 COPD psychiatric disorder [facility] resident ([facility]) Plan: -Continue empiric IV Vancomycin and Cefepime #3 pending sp cx -04/12 SP Zosyn x1, Azithromycin x1 -f/u cx -monitor CBC/CMP, temperatures -COVID19 isolation and testing; 2nd sent test given fever at SNF, pneumonia on CXR and from NH with outbreak Thank you for consulting [facility]. Will continue to follow along with you. Discussed with RN. Subjective Allergies: Coded Allergies: No Known Allergies (Unverified , 04/12/20) Subjective afebrile at RA Bcx NTD Covid neg x1 Objective Vital Signs Last 24 Hour Vital Signs Date Time Temp Pulse Resp B/P (MAP) Pulse Ox O2 Delivery O2 Flow Rate FiO2 04/14/20 15:12 Room Air 04/14/20 09:00 Room Air 04/14/20 04:00 97.7 78 20 95/55 (68) 94 04/14/20 00:00 98.1 83 20 97/59 (72) 90 04/13/20 21:00 Room Air 04/13/20 20:00 97.4 80 20 97/54 (68) 93 Height (Feet): 5 Height (Inches): 8.00 Weight (Pounds): 140 Objective not examined to limit COVID19 exposure Microbiology Date/Time Source Procedure Growth Status 04/12/20 12:00 Blood Blood Culture - Preliminary NO GROWTH AFTER 24 HOURS Resulted 04/12/20 12:00 Blood Blood Culture - Preliminary NO GROWTH AFTER 24 HOURS Resulted 04/12/20 12:00 Nasal Nares MRSA Culture - Final NO METHICILLIN RESISTANT STAPH AUREUS... Complete 04/12/20 12:00 Nasopharynx Coronavirus COVID-19 PCR (PADMAJA) - Final Complete 04/12/20 23:30 Indwelling Cath Urine Culture - Preliminary NO GROWTH Resulted 04/12/20 12:00 Rectum VRE Culture - Final NO VANCOMYCIN RESISTANT ENTEROCOCCUS ... Complete 04/12/20 12:00 Rectum - Final NO CARBAPENEM-RESISTANT ENTEROBACTERI... Complete Laboratory Tests Test 04/14/20 05:00 04/14/20 08:30 White Blood Count 5.5 K/UL (4.8-10.8) Red Blood Count 4.18 M/UL (4.70-6.10) L Hemoglobin 11.8 G/DL (14.2-18.0) L Hematocrit 33.7 % (42.0-52.0) L Mean Corpuscular Volume 81 FL (80-99) Mean Corpuscular Hemoglobin 28.3 PG (27.0-31.0) Mean Corpuscular Hemoglobin Concent 35.1 G/DL (32.0-36.0) Red Cell Distribution Width 11.8 % (11.6-14.8) Platelet Count 346 K/UL (150-450) Mean Platelet Volume 4.9 FL (6.5-10.1) L Neutrophils (%) (Auto) 45.2 % (45.0-75.0) Lymphocytes (%) (Auto) 43.0 % (20.0-45.0) Monocytes (%) (Auto) 8.5 % (1.0-10.0) Eosinophils (%) (Auto) 2.8 % (0.0-3.0) Basophils (%) (Auto) 0.5 % (0.0-2.0) Erythrocyte Sedimentation Rate 48 MM/HR (0-20) H Sodium Level 139 MMOL/L (136-145) Potassium Level 3.1 MMOL/L (3.5-5.1) L Chloride Level 104 MMOL/L (98-107) Carbon Dioxide Level 25 MMOL/L (21-32) Anion Gap 10 mmol/L (5-15) Blood Urea Nitrogen 10 mg/dL (7-18) Creatinine 0.8 MG/DL (0.55-1.30) Estimat Glomerular Filtration Rate > 60 mL/min (>60) Glucose Level 105 MG/DL (74-106) Calcium Level 8.0 MG/DL (8.5-10.1) L Phosphorus Level 2.8 MG/DL (2.5-4.9) Magnesium Level 1.9 MG/DL (1.8-2.4) Total Bilirubin 0.5 MG/DL (0.2-1.0) Aspartate Amino Transf (AST/SGOT) 30 U/L (15-37) Alanine Aminotransferase (ALT/SGPT) 20 U/L (12-78) Alkaline Phosphatase 70 U/L (46-116) C-Reactive Protein, Quantitative 7.1 mg/dL (0.00-0.90) H Total Protein 6.6 G/DL (6.4-8.2) Albumin 2.6 G/DL (3.4-5.0) L Globulin 4.0 g/dL Albumin/Globulin Ratio 0.6 (1.0-2.7) L Vancomycin Level Trough 6.7 ug/mL (5.0-12.0) Current Medications Medications (Trade) Dose Ordered Sig/Rodney Route PRN Reason Start Time Stop Time Status Last Admin Dose Admin Acetaminophen (Tylenol) 650 mg Q4H PRN ORAL fever 04/12/20 15:00 05/12/20 14:59 Albuterol/ Ipratropium (Combivent Respimat) 1 puff Q4H PRN INH Shortness of Breath 04/12/20 15:33 05/12/20 15:32 Atorvastatin Calcium (Lipitor) 20 mg BEDTIME ORAL 04/12/20 21:00 07/11/20 20:59 04/13/20 21:34 Cefepime HCl 2 gm/ Dextrose 110 ml @ 220 mls/hr EVERY 12 HOURS IV 04/12/20 21:00 04/19/20 20:59 04/14/20 09:27 Dextrose (Dextrose 50%) 25 ml Q30M PRN IV Hypoglycemia 04/12/20 15:00 07/11/20 14:59 Dextrose (Dextrose 50%) 50 ml Q30M PRN IV Hypoglycemia 04/12/20 15:00 07/11/20 14:59 Heparin Sodium (Porcine) (Heparin 5000 units/ml) 5,000 units EVERY 12 HOURS SUBQ 04/12/20 21:00 05/27/20 20:59 04/14/20 09:27 Insulin Aspart (NovoLOG) BEFORE MEALS AND HS SUBQ 04/12/20 16:30 07/11/20 16:29 Lorazepam (Ativan) 0.5 mg Q6H PRN ORAL For Anxiety 04/14/20 06:15 04/21/20 06:14 Memantine (Namenda) 5 mg BID ORAL 04/14/20 09:00 05/14/20 08:59 04/14/20 09:27 Nitroglycerin (Ntg) 0.4 mg Q5M PRN SL Prn Chest Pain 04/12/20 15:00 05/12/20 14:59 Ondansetron HCl (Zofran) 4 mg Q6H PRN IVP Nausea & Vomiting 04/12/20 15:00 05/12/20 14:59 Polyethylene Glycol (Miralax) 17 gm DAILYPRN PRN ORAL Constipation 04/12/20 15:00 05/12/20 14:59 Temazepam (Restoril) 15 mg HSPRN PRN ORAL Insomnia 04/12/20 15:00 04/19/20 14:59 Vancomycin HCl (Vanco rx to dose) 1 ea DAILY PRN MISC . 04/12/20 15:30 05/12/20 15:29 Vancomycin HCl 1 gm/Sodium Chloride 275 ml @ 183.708 mls/hr Q12HR@1000,2200 IVPB 04/14/20 10:00 04/19/20 09:59 04/14/20 10:18 Genesis Omalley M.D. April 14, 2020 16:10
--- NOTE | 2020-04-14 16:52 | NUR ---
NURSE NOTES: Dr. Omalley (ID) informed of negative covid swab result from 04/12. Received orders to obtain second nasopharyngeal swab for covid. Orders noted and carried out. Specimen sent down to lab at 1650H.
--- NOTE | 2020-04-14 17:30 | Consultation ---
DATE OF CONSULTATION: 04/14/2020 CONSULTING PHYSICIAN: Cristine Duenas MD HISTORY OF PRESENT ILLNESS: This is a 74-year-old male patient. He has altered mental status, some confusion, decline in cognition below his baseline. That is why, he does require inpatient treatment at this time. He is very irritable, but the reason why he came into the hospital is because he from [facility]. He has fever, confusion, and generalized weakness. So, his cognition has declined below baseline recently and that is the reason why his attending has requested daily psychiatric consultation. He also had altered mental status and psychomotor agitation. MEDICAL HISTORY: Malnutrition, COPD, diabetes, chronic renal disease. ALLERGIES: No known drug allergies noted. PSYCHOTROPIC MEDICATIONS ON ADMISSION: The patient is on melatonin, but other medications are not known. Per chart, he is a poor historian as well. SUBSTANCE ABUSE HISTORY: Denies. PAIN ASSESSMENT: 0/10. DEVELOPMENTAL PROBLEMS: Denies. SOCIAL HISTORY: The patient lives in [facility]. Financially supported by [employer] and Medicare. STRENGTHS: He is motivated to get better and has a place to live. WEAKNESSES: He is impulsive. Minimal support system. PSYCHIATRIC HISTORY: Major depression disorder, severe, recurrent with psychotic features, rule out dementia with psychosis. He is a poor historian. MENTAL STATUS EXAMINATION: This is a 74-year-old male. His appearance is disheveled. Attitude, irritable and agitated. Affect is guarded and restricted. Intellect poor because he does not know current events and does not know the last four presidents. Mood, depressed and anxious. Motor activity, psychomotor agitation. Attention span is poor because he cannot do serial 7's and spell world backwards. Orientation x2, as he is oriented to person and place, not time and situation. Speech is nonsensical. Thought process, disorganized and illogical. Thought content, paranoid delusions. No signs of any auditory hallucinations. Abstract reasoning is poor because he does not understand proverbs, only has cognitive thinking. Insight is poor. He does not recognize having any psychiatric disorder. Judgment is poor because he cannot make medical decisions for himself. No signs of any suicidal or homicidal thoughts. Short-term memory 0 out of 3 after 3-word recall, so poor short-term memory. Long-term memory is intact based on the knowledge of long-term events in his life such as high school that he went to. His gait is normal. There is no abnormal movement. There is no history of . DIAGNOSES: 1. Major depressive disorder, severe, recurrent with psychotic features, rule out dementia with psychosis. 2. There is no secondary. Medical is fever, confusion, generalized weakness, COPD, suspected rule out COVID-19. 3. Psychosocial stressors, financial. 4. Functional impairment is mild. PLAN: Plan for this patient is I am going to start this patient on a medication regimen of Namenda 5 mg twice a day to prevent any further decline in his cognition, Ativan 0.5 mg every 6 hours p.r.n. anxiety and agitation. 20 minutes of insight-oriented psychotherapy to help him recognize his medical and psychiatric condition so that he has better impulse control and behavior on the unit to reduce depression, anxiety and mood lability. 20 minutes of insight-oriented psychotherapy. Chart was reviewed. Discussed with staff. The patient was seen and assessed at the bedside. I would like to thank Dr. Prem Parnell for this interesting consultation. Cristine Duenas M.D. : TAY JOB#: [id number] CC:
--- NOTE | 2020-04-14 19:06 | NUR ---
HAND-OFF: Report given to Ashley WARE. Endorsed that covid swab sample was sent down to labs today.
--- NOTE | 2020-04-14 19:10 | NUR ---
NURSE NOTES: Patient in bed, non-verbal. On room air with no signs of distress or SOB. IV patent and intact. Condom cath in place and draining well. Bed locked and in lowest position. Bed alarm on. Will continue plan of care.
[2020-04-14 20:00] VITALS: BP 121/100
[2020-04-14] MEDS: Atorvastatin 20mg tab ORAL SCH (20:50)
[2020-04-15] VITALS: BP 118/98
[2020-04-15 04:00] VITALS: BP 117/73
--- NOTE | 2020-04-15 05:22 | NUR ---
NURSE NOTES: Patient's blood culture pos for gram pos cocci; message left for Dr. Omalley per micro. carpet installer made aware.
[2020-04-15] MEDS: NovoLOG Insulin Flexpen SUBQ SCH ×4 (05:35→21:00)
--- NOTE | 2020-04-15 07:00 | NUR ---
HAND-OFF: Report given to JEANIE Grimaldo.
[2020-04-15 07:04] LABS: BASOPHILS % (AUTO) 0.9 % (0.0-2.0); EOSINOPHILS % (AUTO) 3.2 % (0.0-3.0); HEMATOCRIT 35.1 % (42.0-52.0); HEMOGLOBIN 12.5 G/DL (14.2-18.0); LYMPHOCYTES % (AUTO) 39.9 % (20.0-45.0); MEAN CORPUSCULAR VOLUME 80 FL (80-99); MONOCYTES % (AUTO) 11.1 % (1.0-10.0); NEUTROPHILS % (AUTO) 44.9 % (45.0-75.0); PLATELET COUNT 349 K/UL (150-450); RED CELL DISTRIBUTION WIDTH 11.6 % (11.6-14.8); WHITE BLOOD COUNT 5.4 K/UL (4.8-10.8)
--- NOTE | 2020-04-15 07:13 | Pulmonology Progress Note ---
Subjective ROS Limited/Unobtainable: No Respiratory: Reports: no symptoms Allergies: Coded Allergies: No Known Allergies (Unverified , 04/12/20) All Systems: reviewed and negative except above Subjective in isolation no fevers pulse ox stable on RA no signs of resp distress K-3.0 this am Objective Last 24 Hour Vital Signs Date Time Temp Pulse Resp B/P (MAP) Pulse Ox O2 Delivery O2 Flow Rate FiO2 04/15/20 04:00 97.8 68 19 117/73 (88) 96 04/15/20 00:00 97.8 70 19 118/98 (105) 97 04/14/20 21:00 Room Air 04/14/20 20:00 97.2 73 19 121/100 (107) 95 04/14/20 16:00 98.0 67 17 116/67 (83) 96 04/14/20 15:12 Room Air 04/14/20 12:00 97.8 72 18 109/69 (82) 95 04/14/20 09:00 Room Air 04/14/20 08:00 97.9 69 17 102/62 (75) 98 Intake and Output 04/14/20 04/15/20 19:00 07:00 Intake Total 925 ml Output Total 1500 ml Balance -575 ml Intake Oral 240 ml IV Total 685 ml Output Urine Total 1500 ml # Bowel Movements 1 1 General Appearance: WD/WN, no acute distress, other HEENT: normocephalic, atraumatic Respiratory: chest wall non-tender, lungs clear Cardiovascular: normal rate Abdomen: normal bowel sounds, soft, non tender Extremities: no edema Skin: no rash 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 Complete 04/12/20 12:00 Nasopharynx Coronavirus COVID-19 PCR (PADMAJA) - Final Complete 04/12/20 23:30 Indwelling Cath Urine Culture - Final NO GROWTH AFTER 48 HOURS Complete 04/12/20 12:00 Rectum VRE Culture - Final NO VANCOMYCIN RESISTANT ENTEROCOCCUS ... Complete 04/12/20 12:00 Rectum - Final NO CARBAPENEM-RESISTANT ENTEROBACTERI... Complete Laboratory Tests 04/14/20 08:30: Vancomycin Level Trough 6.7 04/15/20 06:00: White Blood Count 5.4, Red Blood Count 4.40L, Hemoglobin 12.5L, Hematocrit 35.1L , Mean Corpuscular Volume 80, Mean Corpuscular Hemoglobin 28.3, Mean Corpuscular Hemoglobin Concent 35.5, Red Cell Distribution Width 11.6, Platelet Count 349, Mean Platelet Volume 4.5L, Neutrophils (%) (Auto) 44.9L, Lymphocytes (%) (Auto) 39.9, Monocytes (%) (Auto) 11.1H, Eosinophils (%) (Auto) 3.2H, Basophils (%) (Auto) 0.9, Sodium Level [Pending], Potassium Level [Pending], Chloride Level [Pending], Carbon Dioxide Level [Pending], Blood Urea Nitrogen [ Pending], Creatinine [Pending], Estimat Glomerular Filtration Rate [Pending], Glucose Level [Pending], Calcium Level [Pending] Current Medications Medications (Trade) Dose Ordered Sig/Rodney Route PRN Reason Start Time Stop Time Status Last Admin Dose Admin Acetaminophen (Tylenol) 650 mg Q4H PRN ORAL fever 04/12/20 15:00 05/12/20 14:59 Albuterol/ Ipratropium (Combivent Respimat) 1 puff Q4H PRN INH Shortness of Breath 04/12/20 15:33 05/12/20 15:32 Atorvastatin Calcium (Lipitor) 20 mg BEDTIME ORAL 04/12/20 21:00 07/11/20 20:59 04/14/20 20:50 Cefepime HCl 2 gm/ Dextrose 110 ml @ 220 mls/hr EVERY 12 HOURS IV 04/12/20 21:00 04/19/20 20:59 04/14/20 20:50 Dextrose (Dextrose 50%) 25 ml Q30M PRN IV Hypoglycemia 04/12/20 15:00 07/11/20 14:59 Dextrose (Dextrose 50%) 50 ml Q30M PRN IV Hypoglycemia 04/12/20 15:00 07/11/20 14:59 Heparin Sodium (Porcine) (Heparin 5000 units/ml) 5,000 units EVERY 12 HOURS SUBQ 04/12/20 21:00 05/27/20 20:59 04/14/20 21:04 Insulin Aspart (NovoLOG) BEFORE MEALS AND HS SUBQ 04/12/20 16:30 07/11/20 16:29 04/14/20 21:12 Lorazepam (Ativan) 0.5 mg Q6H PRN ORAL For Anxiety 04/14/20 06:15 04/21/20 06:14 Memantine (Namenda) 5 mg BID ORAL 04/14/20 09:00 05/14/20 08:59 04/14/20 17:05 Nitroglycerin (Ntg) 0.4 mg Q5M PRN SL Prn Chest Pain 04/12/20 15:00 05/12/20 14:59 Ondansetron HCl (Zofran) 4 mg Q6H PRN IVP Nausea & Vomiting 04/12/20 15:00 05/12/20 14:59 Polyethylene Glycol (Miralax) 17 gm DAILYPRN PRN ORAL Constipation 04/12/20 15:00 05/12/20 14:59 Temazepam (Restoril) 15 mg HSPRN PRN ORAL Insomnia 04/12/20 15:00 04/19/20 14:59 Vancomycin HCl (Vanco rx to dose) 1 ea DAILY PRN MISC . 04/12/20 15:30 05/12/20 15:29 Vancomycin HCl 1 gm/Sodium Chloride 275 ml @ 183.708 mls/hr Q12HR@1000,2200 IVPB 04/14/20 10:00 04/19/20 09:59 04/14/20 22:52 Assessment/Plan Assessment/Plan ASSESSMENT Fever Suspected COVID-19 infection Pneumonia COPD Diabetes mellitus Hypokalemia Schizophrenia PLAN of CARE MS floor O2 titrate to keep sat above 92% pulmonary toilet abx as per ID fup with CXR SARS-CoV-2 by PCR 04/12 NGT, need another COVID test 04/14 pending keep in isolation UCX NGT BCX NGTD DVT prophylaxis BS management with SSI K replaced, Mg stable bowel regimen supportive care case discussed and evaluated by supervising physician Lila Silvestre NP April 15, 2020 07:13
[2020-04-15 07:37] LABS: ANION GAP 11 mmol/L (5-15); BLOOD UREA NITROGEN 6 mg/dL (7-18); CARBON DIOXIDE 24 MMOL/L (21-32); CHLORIDE 106 MMOL/L (98-107); CREATININE 0.6 MG/DL (0.55-1.30); SODIUM 141 MMOL/L (136-145)
--- NOTE | 2020-04-15 07:42 | NUR ---
NURSE NOTES: Report received from Ashley WARE. Patient seen on rounds, AxOx0, non-verbal, not in distress, tolerating room air. No fevers reported overnight. PIV on left forearm and right antecubital patent and intact. Condom catheter secured and draining. Bed low and locked, siderails up x2, zone alarms on 1, will continue to monitor.
[2020-04-15 08:00] VITALS: BP 111/60
--- NOTE | 2020-04-15 08:00 | NUR ---
NURSE NOTES: Lila Silvestre SEPTIC TECHNICIAN notified of patient's low potassium results today (K= 3.0). Received orders to administer KCL 40meqs PO x 1 and add Magnesium levels to AM blood draw. Orders noted and carried out.
[2020-04-15] MEDS: Memantine 5 MG TAB ORAL SCH ×2 (08:31→16:53)
[2020-04-15] MEDS: Cefepime HCl 2 GM in D5W 110 ML IV SCH ×2 (08:32→22:34)
[2020-04-15] MEDS: Heparin 5000 units/ml inj SUBQ SCH ×2 (08:37→22:35)
--- NOTE | 2020-04-15 09:35 | General Progress Note ---
Assessment/Plan Problem List: (1) Diabetes ICD Codes: E11.9 - Type 2 diabetes mellitus without complications SNOMED: 84296972 (2) CKD (chronic kidney disease) ICD Codes: N18.9 - Chronic kidney disease, unspecified SNOMED: 394183049 (3) Weak ICD Codes: R53.1 - Weakness SNOMED: 64420591 (4) PVD (peripheral vascular disease) ICD Codes: I73.9 - Peripheral vascular disease, unspecified SNOMED: 833511503 (5) Psychosis ICD Codes: F29 - Unspecified psychosis not due to a substance or known physiological condition SNOMED: 31109009 (6) Diabetes mellitus ICD Codes: E11.9 - Type 2 diabetes mellitus without complications SNOMED: 87276128 (7) COPD (chronic obstructive pulmonary disease) ICD Codes: J44.9 - Chronic obstructive pulmonary disease, unspecified SNOMED: 89305916 (8) Suspected 2019-nCoV infection ICD Codes: Z20.828 - Contact with and (suspected) exposure to other viral communicable diseases SNOMED: 963499520 (9) Nosocomial pneumonia ICD Codes: J18.9 - Pneumonia, unspecified organism; Y95 - Nosocomial condition SNOMED: 778308327 Status: unchanged Assessment/Plan: o2 pulm tx abx pt diet cbc bmp am dc plan Subjective Constitutional: Reports: weakness Allergies: Coded Allergies: No Known Allergies (Unverified , 04/12/20) All Systems: reviewed and negative except above Subjective sleepy calm Objective Last 24 Hour Vital Signs Date Time Temp Pulse Resp B/P (MAP) Pulse Ox O2 Delivery O2 Flow Rate FiO2 04/15/20 09:00 Room Air 04/15/20 08:00 98.0 64 18 111/60 (77) 96 04/15/20 04:00 97.8 68 19 117/73 (88) 96 04/15/20 00:00 97.8 70 19 118/98 (105) 97 04/14/20 21:00 Room Air 04/14/20 20:00 97.2 73 19 121/100 (107) 95 04/14/20 16:00 98.0 67 17 116/67 (83) 96 04/14/20 15:12 Room Air 04/14/20 12:00 97.8 72 18 109/69 (82) 95 Intake and Output 04/14/20 04/15/20 19:00 07:00 Intake Total 925 ml Output Total 1500 ml Balance -575 ml Intake Oral 240 ml IV Total 685 ml Output Urine Total 1500 ml # Bowel Movements 1 1 Laboratory Tests 04/15/20 06:00: White Blood Count 5.4, Red Blood Count 4.40L, Hemoglobin 12.5L, Hematocrit 35.1L , Mean Corpuscular Volume 80, Mean Corpuscular Hemoglobin 28.3, Mean Corpuscular Hemoglobin Concent 35.5, Red Cell Distribution Width 11.6, Platelet Count 349, Mean Platelet Volume 4.5L, Neutrophils (%) (Auto) 44.9L, Lymphocytes (%) (Auto) 39.9, Monocytes (%) (Auto) 11.1H, Eosinophils (%) (Auto) 3.2H, Basophils (%) (Auto) 0.9, Sodium Level 141, Potassium Level 3.0L, Chloride Level 106, Carbon Dioxide Level 24, Anion Gap 11, Blood Urea Nitrogen 6L, Creatinine 0.6, Estimat Glomerular Filtration Rate > 60, Glucose Level 116H, Calcium Level 8.0L, Magnesium Level 2.0 Height (Feet): 5 Height (Inches): 8.00 Weight (Pounds): 140 General Appearance: lethargic EENT: normal ENT inspection Neck: normal alignment Cardiovascular: normal peripheral pulses, normal rate, regular rhythm Respiratory/Chest: chest wall non-tender, lungs clear, normal breath sounds Abdomen: normal bowel sounds, non tender, soft Extremities: normal inspection Edema: no edema noted Arm (L), no edema noted Arm (R), no edema noted Leg (L), no edema noted Leg (R), no edema noted Pedal (L), no edema noted Pedal (R), no edema noted Generalized Neurologic: motor weakness Skin: normal pigmentation, warm/dry Prem Parnell DO April 15, 2020 09:35
[2020-04-15] MEDS: Vancomycin 1 GM in NS 275 ML IVPB SCH ×3 (10:09→23:30)
[2020-04-15 12:00] VITALS: BP 115/65
--- NOTE | 2020-04-15 13:49 | Surgery Progress Note ---
Surgery Progress Note Subjective Symptoms: improved, tolerating diet, passing flatus Objective Last 24 Hour Vital Signs Date Time Temp Pulse Resp B/P (MAP) Pulse Ox O2 Delivery O2 Flow Rate FiO2 04/15/20 12:00 98.4 68 18 115/65 (82) 96 04/15/20 09:00 Room Air 04/15/20 08:00 98.0 64 18 111/60 (77) 96 04/15/20 04:00 97.8 68 19 117/73 (88) 96 04/15/20 00:00 97.8 70 19 118/98 (105) 97 04/14/20 21:00 Room Air 04/14/20 20:00 97.2 73 19 121/100 (107) 95 04/14/20 16:00 98.0 67 17 116/67 (83) 96 04/14/20 15:12 Room Air I&O Intake and Output 04/14/20 04/15/20 19:00 07:00 Intake Total 925 ml Output Total 1500 ml Balance -575 ml Intake Oral 240 ml IV Total 685 ml Output Urine Total 1500 ml # Bowel Movements 1 1 Dressing: other Wound: other Drains: other Cardiovascular: RSR Respiratory: decreased breath sounds Abdomen: soft, non-tender, present bowel sounds Extremities: no cyanosis Laboratory Tests Test 04/15/20 06:00 White Blood Count 5.4 K/UL (4.8-10.8) Red Blood Count 4.40 M/UL (4.70-6.10) L Hemoglobin 12.5 G/DL (14.2-18.0) L Hematocrit 35.1 % (42.0-52.0) L Mean Corpuscular Volume 80 FL (80-99) Mean Corpuscular Hemoglobin 28.3 PG (27.0-31.0) Mean Corpuscular Hemoglobin Concent 35.5 G/DL (32.0-36.0) Red Cell Distribution Width 11.6 % (11.6-14.8) Platelet Count 349 K/UL (150-450) Mean Platelet Volume 4.5 FL (6.5-10.1) L Neutrophils (%) (Auto) 44.9 % (45.0-75.0) L Lymphocytes (%) (Auto) 39.9 % (20.0-45.0) Monocytes (%) (Auto) 11.1 % (1.0-10.0) H Eosinophils (%) (Auto) 3.2 % (0.0-3.0) H Basophils (%) (Auto) 0.9 % (0.0-2.0) Sodium Level 141 MMOL/L (136-145) Potassium Level 3.0 MMOL/L (3.5-5.1) L Chloride Level 106 MMOL/L (98-107) Carbon Dioxide Level 24 MMOL/L (21-32) Anion Gap 11 mmol/L (5-15) Blood Urea Nitrogen 6 mg/dL (7-18) L Creatinine 0.6 MG/DL (0.55-1.30) Estimat Glomerular Filtration Rate > 60 mL/min (>60) Glucose Level 116 MG/DL (74-106) H Calcium Level 8.0 MG/DL (8.5-10.1) L Magnesium Level 2.0 MG/DL (1.8-2.4) Plan Problems: (1) Psychosis (2) Fever (3) Diabetes mellitus (4) COPD (chronic obstructive pulmonary disease) (5) Nosocomial pneumonia (6) Suspected 2019-nCoV infection (7) Incontinence associated dermatitis Assessment & Plan: 74-year-old male currently admitted for fever work-up. On admission identified to have low body weight BMI 21 low albumin Having continence and identified to have abnormality around the sacral buttock region. On evaluation identified to be con associated dermatitis. Currently has a condom cath and good urine output. Bowel movements monitor closely to ensure and help with clean up Mental status makes it difficult for patient to comfortably turn side to side and even with assistance he moves around a lot. We will monitor closely to ensure improvement. Nutritional supplementation Labs noted We will follow with recommendations Participate patient's care Chris Morocho April 15, 2020 13:49
--- NOTE | 2020-04-15 15:11 | NUR ---
NURSE NOTES: Received call from Abiel (lab), covid swab results from 04/[address] Omalley notified and is aware.
[2020-04-15 16:00] VITALS: BP 95/57
--- NOTE | 2020-04-15 19:44 | NUR ---
HAND-OFF: Report given to Carlos WARE.
[2020-04-15 20:00] VITALS: BP 122/57
--- NOTE | 2020-04-15 20:07 | NUR ---
NURSE NOTES: Pt is in bed awake, non-verbal . No acute distress noted. No SOB, room air. Condom cath on, draining yellow urine. Fall precaution in place. Bed alarm on. Side rails up and call light within reach. Pt will be monitored.
--- NOTE | 2020-04-15 22:00 | Progress Note ---
DATE: 04/15/2020 HISTORY OF PRESENT ILLNESS: This is a 74-year-old male patient with fever, rule out COVID-19. He still has altered mental status, confusion. He got decline in cognition below his baseline with altered mental status. He has got chronic renal disease, peripheral vascular disease, COPD, diabetes, , pneumonia, rule out COVID-19. That is why, daily psychiatric consultation was requested. MENTAL STATUS EXAMINATION: A 74-year-old male. Appearance is disheveled. Attitude, irritable and agitated. Affect, guarded and restricted. Intellect poor. Mood, depressed and anxious. Motor activity, psychomotor agitation. Attention span is poor. Orientation x2. Speech is low volume, slurred. Thought process, disorganized and illogical. Insight and judgment are poor. DIAGNOSIS: Major depressive disorder, mild, recurrent with psychotic features, rule out dementia with psychosis. PLAN: Treat him with Ativan 0.5 mg every 6 hours p.r.n. anxiety and agitation and Namenda 5 mg twice a day. 20 minutes of cognitive behavioral therapy to help him identify his automatic negative thoughts and help convert his negative thoughts to more positive thoughts to reduce depression, anxiety, and mood lability. Chart reviewed. Discussed with staff. The patient was seen and assessed at bedside. Encouraged him to interact appropriately with staff and other patients. Cristine Duenas M.D. DR: Chris JOB#: [id number] CC:
[2020-04-15] MEDS: Atorvastatin 20mg tab ORAL SCH (22:34)
[2020-04-16] VITALS: BP 118/60
--- NOTE | 2020-04-16 03:49 | NUR ---
NURSE NOTES: Pt is in bed, asleep. No acute distress noted. Pt is given a snack to eat. Pt repositioned. No fever or cough.
[2020-04-16 04:00] VITALS: BP 125/66
[2020-04-16] MEDS: NovoLOG Insulin Flexpen SUBQ SCH ×4 (06:15→20:05)
[2020-04-16] MEDS: Vancomycin 1 GM in NS 275 ML IVPB SCH (06:16)
--- NOTE | 2020-04-16 07:10 | NUR ---
HAND-OFF: Report given to Bindu Ho RN.Pt is asleep. Vitas stable. Informed that pt is fall risk. Bed alarm on.
--- NOTE | 2020-04-16 07:31 | NUR ---
NURSE NOTES: Report received from JEANIE Gonzalez. Patient seen on rounds, asleep but easily rousable, not in distress, tolerating room air, afebrile. PIV on left hand and right antecubital patent and intact. Condom catheter secured and draining well. Isolation precautions in place. Bed low and locked, siderails up x2, zone alarms on 1, will continue to monitor.
--- NOTE | 2020-04-16 07:35 | Pulmonology Progress Note ---
Subjective ROS Limited/Unobtainable: No Allergies: Coded Allergies: No Known Allergies (Unverified , 04/12/20) All Systems: reviewed and negative except above Subjective in isolation no fevers pulse ox stable on RA no signs of resp distress Objective Last 24 Hour Vital Signs Date Time Temp Pulse Resp B/P (MAP) Pulse Ox O2 Delivery O2 Flow Rate FiO2 04/16/20 04:00 97.8 72 18 125/66 (85) 95 04/16/20 00:00 97.8 72 20 118/60 (79) 95 04/15/20 21:00 Room Air 04/15/20 20:00 98.0 67 19 122/57 (78) 97 04/15/20 16:00 98.1 63 20 95/57 (70) 96 04/15/20 12:00 98.4 68 18 115/65 (82) 96 04/15/20 09:00 Room Air 04/15/20 08:00 98.0 64 18 111/60 (77) 96 Intake and Output 04/15/20 04/16/20 18:59 06:59 Intake Total 865 ml 385 ml Output Total 1000 ml Balance -135 ml 385 ml Intake Oral 480 ml IV Total 385 ml 385 ml Output Urine Total 1000 ml # Bowel Movements 2 Objective General Appearance: WD/WN, no acute distress, other HEENT: normocephalic, atraumatic Respiratory: chest wall non-tender, lungs clear Cardiovascular: normal rate Abdomen: normal bowel sounds, soft, non tender Extremities: no edema Skin: no rash 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 normal, abnormal gait, alert Lymphatic: no neck adenopathy Musculoskeletal: normal muscle bulk Microbiology Date/Time Source Procedure Growth Status 04/14/20 08:30 Blood Blood Culture - Preliminary NO GROWTH AFTER 24 HOURS Resulted 04/14/20 08:30 Blood Blood Culture - Preliminary NO GROWTH AFTER 24 HOURS Resulted Laboratory Tests 04/15/20 21:20: Vancomycin Level Trough 9.4 Current Medications Medications (Trade) Dose Ordered Sig/Rodney Route PRN Reason Start Time Stop Time Status Last Admin Dose Admin Acetaminophen (Tylenol) 650 mg Q4H PRN ORAL fever 04/12/20 15:00 05/12/20 14:59 Albuterol/ Ipratropium (Combivent Respimat) 1 puff Q4H PRN INH Shortness of Breath 04/12/20 15:33 05/12/20 15:32 Atorvastatin Calcium (Lipitor) 20 mg BEDTIME ORAL 04/12/20 21:00 07/11/20 20:59 04/15/20 22:34 Cefepime HCl 2 gm/ Dextrose 110 ml @ 220 mls/hr EVERY 12 HOURS IV 04/12/20 21:00 04/19/20 20:59 04/15/20 22:34 Dextrose (Dextrose 50%) 25 ml Q30M PRN IV Hypoglycemia 04/12/20 15:00 07/11/20 14:59 Dextrose (Dextrose 50%) 50 ml Q30M PRN IV Hypoglycemia 04/12/20 15:00 07/11/20 14:59 Heparin Sodium (Porcine) (Heparin 5000 units/ml) 5,000 units EVERY 12 HOURS SUBQ 04/12/20 21:00 05/27/20 20:59 04/15/20 22:35 Insulin Aspart (NovoLOG) BEFORE MEALS AND HS SUBQ 04/12/20 16:30 07/11/20 16:29 04/15/20 11:44 Lorazepam (Ativan) 0.5 mg Q6H PRN ORAL For Anxiety 04/14/20 06:15 04/21/20 06:14 Memantine (Namenda) 5 mg BID ORAL 04/14/20 09:00 05/14/20 08:59 04/15/20 16:53 Nitroglycerin (Ntg) 0.4 mg Q5M PRN SL Prn Chest Pain 04/12/20 15:00 05/12/20 14:59 Ondansetron HCl (Zofran) 4 mg Q6H PRN IVP Nausea & Vomiting 04/12/20 15:00 05/12/20 14:59 Polyethylene Glycol (Miralax) 17 gm DAILYPRN PRN ORAL Constipation 04/12/20 15:00 05/12/20 14:59 Temazepam (Restoril) 15 mg HSPRN PRN ORAL Insomnia 04/12/20 15:00 04/19/20 14:59 04/15/20 22:34 Vancomycin HCl (Vanco rx to dose) 1 ea DAILY PRN MISC . 04/12/20 15:30 05/12/20 15:29 Vancomycin HCl 1 gm/Sodium Chloride 275 ml @ 184 mls/hr Q8H IVPB 04/15/20 22:00 04/20/20 21:59 04/16/20 06:16 Assessment/Plan Assessment/Plan ASSESSMENT Fever Suspected COVID-19 infection Pneumonia COPD Diabetes mellitus Hypokalemia Schizophrenia PLAN of CARE MS floor O2 titrate to keep sat above 92% pulmonary toilet abx as per ID fup with CXR SARS-CoV-2 by PCR 04/12 NGT, need another COVID test 04/14 pending keep in isolation UCX NGT BCX NGTD DVT prophylaxis BS management with SSI bowel regimen supportive care case discussed and evaluated by supervising physician Lila Silvestre NP April 16, 2020 07:35
[2020-04-16 08:00] VITALS: BP 110/55
[2020-04-16] MEDS: Memantine 5 MG TAB ORAL SCH ×2 (08:28→17:17)
[2020-04-16] MEDS: Cefepime HCl 2 GM in D5W 110 ML IV SCH ×2 (08:28→21:00)
[2020-04-16] MEDS: Heparin 5000 units/ml inj SUBQ SCH ×2 (08:29→20:43)
--- NOTE | 2020-04-16 08:47 | General Progress Note ---
Assessment/Plan Problem List: (1) Diabetes ICD Codes: E11.9 - Type 2 diabetes mellitus without complications SNOMED: 26773720 (2) CKD (chronic kidney disease) ICD Codes: N18.9 - Chronic kidney disease, unspecified SNOMED: 234158484 (3) Weak ICD Codes: R53.1 - Weakness SNOMED: 15696566 (4) PVD (peripheral vascular disease) ICD Codes: I73.9 - Peripheral vascular disease, unspecified SNOMED: 811866526 (5) Psychosis ICD Codes: F29 - Unspecified psychosis not due to a substance or known physiological condition SNOMED: 38761963 (6) Diabetes mellitus ICD Codes: E11.9 - Type 2 diabetes mellitus without complications SNOMED: 58667884 (7) COPD (chronic obstructive pulmonary disease) ICD Codes: J44.9 - Chronic obstructive pulmonary disease, unspecified SNOMED: 90597104 (8) Suspected 2019-nCoV infection ICD Codes: Z20.828 - Contact with and (suspected) exposure to other viral communicable diseases SNOMED: 723172411 (9) Nosocomial pneumonia ICD Codes: J18.9 - Pneumonia, unspecified organism; Y95 - Nosocomial condition SNOMED: 665118128 Status: unchanged Assessment/Plan: o2 pulm tx abx pt diet cbc bmp am Subjective Constitutional: Reports: weakness Allergies: Coded Allergies: No Known Allergies (Unverified , 04/12/20) All Systems: reviewed and negative except above Subjective sleepy calm Objective Last 24 Hour Vital Signs Date Time Temp Pulse Resp B/P (MAP) Pulse Ox O2 Delivery O2 Flow Rate FiO2 04/16/20 04:00 97.8 72 18 125/66 (85) 95 04/16/20 00:00 97.8 72 20 118/60 (79) 95 04/15/20 21:00 Room Air 04/15/20 20:00 98.0 67 19 122/57 (78) 97 04/15/20 16:00 98.1 63 20 95/57 (70) 96 04/15/20 12:00 98.4 68 18 115/65 (82) 96 04/15/20 09:00 Room Air Intake and Output 04/15/20 04/16/20 19:00 07:00 Intake Total 865 ml 385 ml Output Total 1000 ml Balance -135 ml 385 ml Intake Oral 480 ml IV Total 385 ml 385 ml Output Urine Total 1000 ml # Bowel Movements 2 Laboratory Tests 04/15/20 21:20: Vancomycin Level Trough 9.4 04/16/20 05:45: White Blood Count [Pending], Red Blood Count [Pending], Hemoglobin [Pending], Hematocrit [Pending], Mean Corpuscular Volume [Pending], Mean Corpuscular Hemoglobin [Pending], Mean Corpuscular Hemoglobin Concent [Pending], Red Cell Distribution Width [Pending], Platelet Count [Pending], Mean Platelet Volume [ Pending], Neutrophils (%) (Auto) [Pending], Lymphocytes (%) (Auto) [Pending], Monocytes (%) (Auto) [Pending], Eosinophils (%) (Auto) [Pending], Basophils (%) (Auto) [Pending], Sodium Level [Pending], Potassium Level [Pending], Chloride Level [Pending], Carbon Dioxide Level [Pending], Blood Urea Nitrogen [Pending], Creatinine [Pending], Estimat Glomerular Filtration Rate [Pending], Glucose Level [Pending], Calcium Level [Pending] Height (Feet): 5 Height (Inches): 8.00 Weight (Pounds): 140 General Appearance: lethargic EENT: normal ENT inspection Neck: normal alignment Cardiovascular: normal rate, regular rhythm Respiratory/Chest: no respiratory distress, no accessory muscle use Extremities: normal inspection Skin: normal pigmentation Prem Parnell DO April 16, 2020 08:47
[2020-04-16 08:50] LABS: HEMATOCRIT 39.9 % (42.0-52.0); MEAN CORPUSCULAR VOLUME 82 FL (80-99); PLATELET COUNT 397 K/UL (150-450); RED CELL DISTRIBUTION WIDTH 11.8 % (11.6-14.8); WHITE BLOOD COUNT 5.5 K/UL (4.8-10.8)
[2020-04-16 09:00] LABS: ANION GAP 13 mmol/L (5-15); BLOOD UREA NITROGEN 6 mg/dL (7-18); CALCIUM 8.5 MG/DL (8.5-10.1); CARBON DIOXIDE 21 MMOL/L (21-32); CHLORIDE 106 MMOL/L (98-107); CREATININE 0.7 MG/DL (0.55-1.30); POTASSIUM 3.6 MMOL/L (3.5-5.1); SODIUM 140 MMOL/L (136-145)
[2020-04-16 12:00] VITALS: BP 93/54
--- NOTE | 2020-04-16 12:42 | Surgery Progress Note ---
Surgery Progress Note Subjective Additional Comments labs okay exam stable comfortable Objective Last 24 Hour Vital Signs Date Time Temp Pulse Resp B/P (MAP) Pulse Ox O2 Delivery O2 Flow Rate FiO2 04/16/20 12:00 98.0 65 18 93/54 (67) 97 04/16/20 09:00 Room Air 04/16/20 08:00 96.8 57 18 110/55 (73) 96 04/16/20 04:00 97.8 72 18 125/66 (85) 95 04/16/20 00:00 97.8 72 20 118/60 (79) 95 04/15/20 21:00 Room Air 04/15/20 20:00 98.0 67 19 122/57 (78) 97 04/15/20 16:00 98.1 63 20 95/57 (70) 96 I&O Intake and Output 04/15/20 04/16/20 19:00 07:00 Intake Total 865 ml 385 ml Output Total 1000 ml Balance -135 ml 385 ml Intake Oral 480 ml IV Total 385 ml 385 ml Output Urine Total 1000 ml # Bowel Movements 2 Dressing: other Wound: other Drains: other Cardiovascular: RSR Respiratory: decreased breath sounds Abdomen: soft, non-tender, present bowel sounds Extremities: no cyanosis Laboratory Tests Test 04/15/20 21:20 04/16/20 05:45 Vancomycin Level Trough 9.4 ug/mL (5.0-12.0) White Blood Count 5.5 K/UL (4.8-10.8) Red Blood Count 4.90 M/UL (4.70-6.10) Hemoglobin 14.0 G/DL (14.2-18.0) L Hematocrit 39.9 % (42.0-52.0) L Mean Corpuscular Volume 82 FL (80-99) Mean Corpuscular Hemoglobin 28.6 PG (27.0-31.0) Mean Corpuscular Hemoglobin Concent 35.1 G/DL (32.0-36.0) Red Cell Distribution Width 11.8 % (11.6-14.8) Platelet Count 397 K/UL (150-450) Mean Platelet Volume 4.5 FL (6.5-10.1) L Neutrophils (%) (Auto) % (45.0-75.0) Lymphocytes (%) (Auto) % (20.0-45.0) Monocytes (%) (Auto) % (1.0-10.0) Eosinophils (%) (Auto) % (0.0-3.0) Basophils (%) (Auto) % (0.0-2.0) Differential Total Cells Counted 100 Neutrophils % (Manual) 52 % (45-75) Lymphocytes % (Manual) 32 % (20-45) Monocytes % (Manual) 14 % (1-10) H Eosinophils % (Manual) 2 % (0-3) Basophils % (Manual) 0 % (0-2) Band Neutrophils 0 % (0-8) Platelet Estimate Adequate Platelet Morphology Normal Red Blood Cell Morphology Normal Sodium Level 140 MMOL/L (136-145) Potassium Level 3.6 MMOL/L (3.5-5.1) Chloride Level 106 MMOL/L (98-107) Carbon Dioxide Level 21 MMOL/L (21-32) Anion Gap 13 mmol/L (5-15) Blood Urea Nitrogen 6 mg/dL (7-18) L Creatinine 0.7 MG/DL (0.55-1.30) Estimat Glomerular Filtration Rate > 60 mL/min (>60) Glucose Level 111 MG/DL (74-106) H Calcium Level 8.5 MG/DL (8.5-10.1) Plan Problems: (1) Psychosis (2) Fever (3) Diabetes mellitus (4) COPD (chronic obstructive pulmonary disease) (5) Nosocomial pneumonia (6) Suspected 2019-nCoV infection (7) Incontinence associated dermatitis Assessment & Plan: 74-year-old male currently admitted for fever work-up. On admission identified to have low body weight BMI 21 low albumin Having continence and identified to have abnormality around the sacral buttock region. On evaluation identified to be con associated dermatitis. Currently has a condom cath and good urine output. Bowel movements monitor closely to ensure and help with clean up Mental status makes it difficult for patient to comfortably turn side to side and even with assistance he moves around a lot. We will monitor closely to ensure improvement. Nutritional supplementation Labs noted We will follow with recommendations Participate patient's care Chris Morocho April 16, 2020 12:42
--- NOTE | 2020-04-16 13:28 | Infectious Diseases Prog Note ---
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)- afebrile here so far No leukocytosis -u/a neg; ucx Neg -Bcx NTD CONS bacteremia- contaminant -04/10 Bcx 1/4 CONS; 04/14 Bcx NTD Dm2 COPD psychiatric disorder SNF resident ([facility]) Plan: -Continue empiric IV Vancomycin #03/21 and Cefepime #03/21 -Will consider Remdesivir if hypoxia (SpO2 <94% at Ra with evidence of clinical worsening or requiring supplemental O2) per [facility] pharmacy criteria -04/12 SP Zosyn x1, Azithromycin x1 -f/u cx -monitor CBC/CMP, temperatures -COVID19 isolation and testing; 2nd test is positive -CXR am Thank you for consulting [facility]. Will continue to follow along with you. Discussed with RN. Subjective Allergies: Coded Allergies: No Known Allergies (Unverified , 04/12/20) Subjective afebrile at RA repeat Bcx NTD 2nd COVID test is positive Objective Vital Signs Last 24 Hour Vital Signs Date Time Temp Pulse Resp B/P (MAP) Pulse Ox O2 Delivery O2 Flow Rate FiO2 04/16/20 12:00 98.0 65 18 93/54 (67) 97 04/16/20 09:00 Room Air 04/16/20 08:00 96.8 57 18 110/55 (73) 96 04/16/20 04:00 97.8 72 18 125/66 (85) 95 04/16/20 00:00 97.8 72 20 118/60 (79) 95 04/15/20 21:00 Room Air 04/15/20 20:00 98.0 67 19 122/57 (78) 97 04/15/20 16:00 98.1 63 20 95/57 (70) 96 Height (Feet): 5 Height (Inches): 8.00 Weight (Pounds): 140 Objective not examined to limit COVID19 exposure Microbiology Date/Time Source Procedure Growth Status 04/14/20 08:30 Blood Blood Culture - Preliminary NO GROWTH AFTER 24 HOURS Resulted 04/14/20 08:30 Blood Blood Culture - Preliminary NO GROWTH AFTER 24 HOURS Resulted 04/14/20 16:50 Nasopharynx Coronavirus COVID-19 PCR (PADMAJA) - Final Complete Laboratory Tests Test 04/15/20 21:20 04/16/20 05:45 Vancomycin Level Trough 9.4 ug/mL (5.0-12.0) White Blood Count 5.5 K/UL (4.8-10.8) Red Blood Count 4.90 M/UL (4.70-6.10) Hemoglobin 14.0 G/DL (14.2-18.0) L Hematocrit 39.9 % (42.0-52.0) L Mean Corpuscular Volume 82 FL (80-99) Mean Corpuscular Hemoglobin 28.6 PG (27.0-31.0) Mean Corpuscular Hemoglobin Concent 35.1 G/DL (32.0-36.0) Red Cell Distribution Width 11.8 % (11.6-14.8) Platelet Count 397 K/UL (150-450) Mean Platelet Volume 4.5 FL (6.5-10.1) L Neutrophils (%) (Auto) % (45.0-75.0) Lymphocytes (%) (Auto) % (20.0-45.0) Monocytes (%) (Auto) % (1.0-10.0) Eosinophils (%) (Auto) % (0.0-3.0) Basophils (%) (Auto) % (0.0-2.0) Differential Total Cells Counted 100 Neutrophils % (Manual) 52 % (45-75) Lymphocytes % (Manual) 32 % (20-45) Monocytes % (Manual) 14 % (1-10) H Eosinophils % (Manual) 2 % (0-3) Basophils % (Manual) 0 % (0-2) Band Neutrophils 0 % (0-8) Platelet Estimate Adequate Platelet Morphology Normal Red Blood Cell Morphology Normal Sodium Level 140 MMOL/L (136-145) Potassium Level 3.6 MMOL/L (3.5-5.1) Chloride Level 106 MMOL/L (98-107) Carbon Dioxide Level 21 MMOL/L (21-32) Anion Gap 13 mmol/L (5-15) Blood Urea Nitrogen 6 mg/dL (7-18) L Creatinine 0.7 MG/DL (0.55-1.30) Estimat Glomerular Filtration Rate > 60 mL/min (>60) Glucose Level 111 MG/DL (74-106) H Calcium Level 8.5 MG/DL (8.5-10.1) Current Medications Medications (Trade) Dose Ordered Sig/Rodney Route PRN Reason Start Time Stop Time Status Last Admin Dose Admin Acetaminophen (Tylenol) 650 mg Q4H PRN ORAL fever 04/12/20 15:00 05/12/20 14:59 Albuterol/ Ipratropium (Combivent Respimat) 1 puff Q4H PRN INH Shortness of Breath 04/12/20 15:33 05/12/20 15:32 Atorvastatin Calcium (Lipitor) 20 mg BEDTIME ORAL 04/12/20 21:00 07/11/20 20:59 04/15/20 22:34 Cefepime HCl 2 gm/ Dextrose 110 ml @ 220 mls/hr EVERY 12 HOURS IV 04/12/20 21:00 04/19/20 20:59 04/16/20 08:28 Dextrose (Dextrose 50%) 25 ml Q30M PRN IV Hypoglycemia 04/12/20 15:00 07/11/20 14:59 Dextrose (Dextrose 50%) 50 ml Q30M PRN IV Hypoglycemia 04/12/20 15:00 07/11/20 14:59 Heparin Sodium (Porcine) (Heparin 5000 units/ml) 5,000 units EVERY 12 HOURS SUBQ 04/12/20 21:00 05/27/20 20:59 04/16/20 08:29 Insulin Aspart (NovoLOG) BEFORE MEALS AND HS SUBQ 04/12/20 16:30 07/11/20 16:29 04/16/20 13:00 Lorazepam (Ativan) 0.5 mg Q6H PRN ORAL For Anxiety 04/14/20 06:15 04/21/20 06:14 Memantine (Namenda) 5 mg BID ORAL 04/14/20 09:00 05/14/20 08:59 04/16/20 08:28 Nitroglycerin (Ntg) 0.4 mg Q5M PRN SL Prn Chest Pain 04/12/20 15:00 05/12/20 14:59 Ondansetron HCl (Zofran) 4 mg Q6H PRN IVP Nausea & Vomiting 04/12/20 15:00 05/12/20 14:59 Polyethylene Glycol (Miralax) 17 gm DAILYPRN PRN ORAL Constipation 04/12/20 15:00 05/12/20 14:59 Temazepam (Restoril) 15 mg HSPRN PRN ORAL Insomnia 04/12/20 15:00 04/19/20 14:59 04/15/20 22:34 Vancomycin HCl (Vanco rx to dose) 1 ea DAILY PRN MISC . 04/12/20 15:30 05/12/20 15:29 Vancomycin HCl 1 gm/Sodium Chloride 275 ml @ 184 mls/hr Q8H IVPB 04/15/20 22:00 04/20/20 21:59 04/16/20 06:16 Genesis Omalley M.D. April 16, 2020 13:28
[2020-04-16 16:00] VITALS: BP 101/59
--- NOTE | 2020-04-16 17:45 | Progress Note ---
DATE: 04/16/2020 SUBJECTIVE: This is a 74-year-old male patient. This patient continues to be depressed, confused, and mood labile. He has got no logical plan for his own self care. He has got feelings of helplessness, hopelessness, low energy, poor appetite, and loss of interest in activity. He came from [facility]. He is confused, disorganized, altered mental status, decline in cognition below his baseline, but he has some COPD, diabetes, causing him to have altered mental status, confusion, decline in cognition below his baseline that is why his attending has requested daily psychiatric consultation. DIAGNOSIS: Major depressive disorder, mild, recurrent with psychotic features rule out dementia with psychosis. PLAN: Treat this patient with medication regimen consisting of Namenda 5 twice a day, Ativan 0.5 every 6 hours p.r.n. anxiety and agitation. A 20 minutes of reality-based supportive psychotherapy. Chart was reviewed and discussed with staff. Seen and assessed at bedside. Cristine Duenas M.D. DR: Mil JOB#: [id number] CC:
--- NOTE | 2020-04-16 19:11 | NUR ---
HAND-OFF: Report given to Rashida Zaldivar RN. Endorsed that patient is fall risk, precautions in place.
[2020-04-16 20:00] VITALS: BP 104/61
--- NOTE | 2020-04-16 20:00 | NUR ---
NURSE NOTES: Received patient awake in bed, no s/s of acute distress, non verbal. 2 IV access intact, flushed with normal saline, patient tolerating well. Bed low and locked. Needs attended to at this time.
[2020-04-16] MEDS: Atorvastatin 20mg tab ORAL SCH (20:38)
[2020-04-17] VITALS: BP 108/55
[2020-04-17 04:00] VITALS: BP 103/58
[2020-04-17] MEDS: NovoLOG Insulin Flexpen SUBQ SCH ×4 (05:40→20:13)
[2020-04-17 06:27] LABS: BASOPHILS % (AUTO) 0.7 % (0.0-2.0); EOSINOPHILS % (AUTO) 2.8 % (0.0-3.0); HEMATOCRIT 35.5 % (42.0-52.0); HEMOGLOBIN 12.8 G/DL (14.2-18.0); LYMPHOCYTES % (AUTO) 34.8 % (20.0-45.0); MEAN CORPUSCULAR VOLUME 80 FL (80-99); MONOCYTES % (AUTO) 13.2 % (1.0-10.0); NEUTROPHILS % (AUTO) 48.5 % (45.0-75.0); PLATELET COUNT 426 K/UL (150-450); RED BLOOD COUNT 4.41 M/UL (4.70-6.10); RED CELL DISTRIBUTION WIDTH 11.7 % (11.6-14.8); WHITE BLOOD COUNT 5.3 K/UL (4.8-10.8)
[2020-04-17 06:42] LABS: ANION GAP 13 mmol/L (5-15); BLOOD UREA NITROGEN 9 mg/dL (7-18); CALCIUM 8.6 MG/DL (8.5-10.1); CARBON DIOXIDE 23 MMOL/L (21-32); CHLORIDE 107 MMOL/L (98-107); CREATININE 0.7 MG/DL (0.55-1.30); POTASSIUM 3.1 MMOL/L (3.5-5.1); SODIUM 143 MMOL/L (136-145)
--- NOTE | 2020-04-17 07:25 | NUR ---
NURSE NOTES: Report given to JEANIE Grimaldo
--- NOTE | 2020-04-17 07:46 | NUR ---
NURSE NOTES: Report received from Buster WARE. Patient seen on rounds, asleep but easily rousable, not in distress, tolerating room air. No fevers reported. PIV on left hand and right antecubital patent and intact. Condom catheter secured and draining well. Isolation precautions in place. Bed low and locked, siderails up x2, zone alarms on 1, will continue to monitor.
[2020-04-17 08:00] VITALS: BP 116/65
--- NOTE | 2020-04-17 09:07 | General Progress Note ---
Assessment/Plan Problem List: (1) Diabetes ICD Codes: E11.9 - Type 2 diabetes mellitus without complications SNOMED: 63528039 (2) CKD (chronic kidney disease) ICD Codes: N18.9 - Chronic kidney disease, unspecified SNOMED: 881649876 (3) Weak ICD Codes: R53.1 - Weakness SNOMED: 00236461 (4) PVD (peripheral vascular disease) ICD Codes: I73.9 - Peripheral vascular disease, unspecified SNOMED: 700083466 (5) Psychosis ICD Codes: F29 - Unspecified psychosis not due to a substance or known physiological condition SNOMED: 55548530 (6) Diabetes mellitus ICD Codes: E11.9 - Type 2 diabetes mellitus without complications SNOMED: 80351992 (7) COPD (chronic obstructive pulmonary disease) ICD Codes: J44.9 - Chronic obstructive pulmonary disease, unspecified SNOMED: 65825657 (8) Suspected 2019-nCoV infection ICD Codes: Z20.828 - Contact with and (suspected) exposure to other viral communicable diseases SNOMED: 404861589 (9) Nosocomial pneumonia ICD Codes: J18.9 - Pneumonia, unspecified organism; Y95 - Nosocomial condition SNOMED: 132938782 Status: unchanged Assessment/Plan: o2 pulm tx abx pt diet cbc bmp am ltach eval Subjective Constitutional: Reports: weakness Allergies: Coded Allergies: No Known Allergies (Unverified , 04/12/20) All Systems: reviewed and negative except above Subjective sleepy calm Objective Last 24 Hour Vital Signs Date Time Temp Pulse Resp B/P (MAP) Pulse Ox O2 Delivery O2 Flow Rate FiO2 04/17/20 04:00 97.7 60 20 103/58 (73) 98 04/17/20 00:00 97.3 63 18 108/55 (72) 98 04/16/20 21:39 Room Air 04/16/20 20:08 72 20 98 Room Air 21 04/16/20 20:00 97.0 69 18 104/61 (75) 98 04/16/20 16:00 97.2 55 18 101/59 (73) 98 04/16/20 12:00 98.0 65 18 93/54 (67) 97 Intake and Output 04/16/20 04/17/20 19:00 07:00 Intake Total 294 ml Output Total 800 ml 500 ml Balance -506 ml -500 ml IV Total 294 ml Output Urine Total 800 ml 500 ml Laboratory Tests 04/17/20 05:00: White Blood Count 5.3, Red Blood Count 4.41L, Hemoglobin 12.8L, Hematocrit 35.5L , Mean Corpuscular Volume 80, Mean Corpuscular Hemoglobin 28.9, Mean Corpuscular Hemoglobin Concent 36.0, Red Cell Distribution Width 11.7, Platelet Count 426, Mean Platelet Volume 4.5L, Neutrophils (%) (Auto) 48.5, Lymphocytes ( %) (Auto) 34.8, Monocytes (%) (Auto) 13.2H, Eosinophils (%) (Auto) 2.8, Basophils (%) (Auto) 0.7, Sodium Level 143, Potassium Level 3.1L, Chloride Level 107, Carbon Dioxide Level 23, Anion Gap 13, Blood Urea Nitrogen 9, Creatinine 0.7, Estimat Glomerular Filtration Rate > 60, Glucose Level 129H, Calcium Level 8.6 Height (Feet): 5 Height (Inches): 8.00 Weight (Pounds): 140 General Appearance: lethargic EENT: normal ENT inspection Neck: normal alignment Cardiovascular: normal rate, regular rhythm Respiratory/Chest: no respiratory distress, no accessory muscle use Extremities: normal inspection Skin: normal pigmentation Prem Parnell DO Apr 17, 2020 09:07
--- NOTE | 2020-04-17 09:15 | NUR ---
DISCHARGE PLANNING S/W RONEN AT [facility]. STATES THEY WERE UNABLE TO ADMIT PATIENT OVER THE WEEKEND DUE TO STAFFING ISSUES. STATED THEY ARE ABLE TO ADMIT PATIENT TODAY TO RM 30-B SKILLED ' DR KEKE MARKS. AWAITING CALL BACK. Addendum: 04/17/20 at 1618 by BELKIS VILLASEÑOR LVN LVN DUE TO COVID-19 RESULTING TODAY WITH POSITIVE RESULT, PATIENT NOT ABLE TO RETURN TO [facility]. COVID-19+ PATIENTS NEED TO BE REFERRED TO THEIR SISTER FACILITY, [facility].
[2020-04-17] MEDS: Memantine 5 MG TAB ORAL SCH ×2 (09:33→18:04)
[2020-04-17] MEDS: Cefepime HCl 2 GM in D5W 110 ML IV SCH (09:33)
[2020-04-17] MEDS: Heparin 5000 units/ml inj SUBQ SCH ×2 (09:42→20:10)
--- NOTE | 2020-04-17 11:09 | NUR ---
RD ASSESSMENT & RECOMMENDATIONS SEE CARE ACTIVITY FOR COMPLETE ASSESSMENT DAILY ESTIMATED NEEDS: Needs based on DM, pulmonary/ 63.5kg 25-30 kcals/kg 6907-4288 total kcals 1-1.5 g protein/kg 64-96 g total protein 25-30 mL/kg 1111-0903 total fluid mLs NUTRITION DIAGNOSIS: * Swallowing difficulty R/T dysphagia as evidenced by seen by ELECTRIC MULE DRIVER w/ rec for pureed moist texture w/ NTL, w/ variable intake at this time. CURRENT DIET:CCHO MED, pureed moist w/ NTL PO DIET RECOMMENDATIONS: CCHO MED/ texture per ELECTRIC MULE DRIVER + Glucerna TID w/ meals ADDITIONAL RECOMMENDATIONS: * Calibrated bedscale wt for accurate CBW * Glucerna TID w/ meals * MVI x 1 as supplement * Monitor PO intake and tolerance closely -> variable intake at this time * A1C for eval of glycemic control
[2020-04-17 12:00] VITALS: BP 112/61
--- NOTE | 2020-04-17 12:15 | Progress Note ---
DATE: 04/17/2020 SUBJECTIVE: This is a 74-year-old male patient with fever, possible COVID-19. He has confusion, disorganized thought process, decline in cognition below his baseline. He is mood labile, no plan for self care. He has got feelings of helplessness, hopelessness, poor energy, low appetite, and loss of interest in activity. He came from [facility]. He is confused, disorganized, altered mental status, decline in cognition below his baseline. That is why, his attending has requested daily psychiatric consultation. MENTAL STATUS EXAMINATION: This is a 74-year-old male. Appearance is disheveled. Attitude, irritable and agitated. Affect, guarded and restricted. Intellect poor. Mood, depressed and anxious. Motor activity, psychomotor agitation. Attention span is poor. Orientation x2. Speech is low volume, slurred. Thought process, disorganized and illogical. Insight and judgment are poor. DIAGNOSIS: Major depressive disorder, mild, recurrent with psychotic features, rule out dementia with psychosis. PLAN: Treat the patient with Namenda 5 mg twice a day, Ativan 0.5 mg every 6 hours p.r.n. anxiety and agitation. A 20 minutes of cognitive behavioral therapy to help him identify his automatic negative thoughts and help convert his negative thoughts to more positive thoughts to reduce depression, anxiety, and mood lability. Chart reviewed. Discussed with staff. Seen and assessed at bedside. Cristine Duenas M.D. DR: TAY JOB#: [id number] CC:
--- NOTE | 2020-04-17 12:55 | Surgery Progress Note ---
Surgery Progress Note Subjective Additional Comments sorin cute events pending xray Objective Last 24 Hour Vital Signs Date Time Temp Pulse Resp B/P (MAP) Pulse Ox O2 Delivery O2 Flow Rate FiO2 04/17/20 09:00 Room Air 04/17/20 08:00 97.9 63 20 116/65 (82) 95 04/17/20 04:00 97.7 60 20 103/58 (73) 98 04/17/20 00:00 97.3 63 18 108/55 (72) 98 04/16/20 21:39 Room Air 04/16/20 20:08 72 20 98 Room Air 21 04/16/20 20:00 97.0 69 18 104/61 (75) 98 04/16/20 16:00 97.2 55 18 101/59 (73) 98 I&O Intake and Output 04/16/20 04/17/20 19:00 07:00 Intake Total 294 ml Output Total 800 ml 500 ml Balance -506 ml -500 ml IV Total 294 ml Output Urine Total 800 ml 500 ml Dressing: other Wound: other Drains: other Cardiovascular: RSR Respiratory: decreased breath sounds Abdomen: soft, non-tender, present bowel sounds Extremities: no cyanosis Laboratory Tests Test 04/17/20 05:00 White Blood Count 5.3 K/UL (4.8-10.8) Red Blood Count 4.41 M/UL (4.70-6.10) L Hemoglobin 12.8 G/DL (14.2-18.0) L Hematocrit 35.5 % (42.0-52.0) L Mean Corpuscular Volume 80 FL (80-99) Mean Corpuscular Hemoglobin 28.9 PG (27.0-31.0) Mean Corpuscular Hemoglobin Concent 36.0 G/DL (32.0-36.0) Red Cell Distribution Width 11.7 % (11.6-14.8) Platelet Count 426 K/UL (150-450) Mean Platelet Volume 4.5 FL (6.5-10.1) L Neutrophils (%) (Auto) 48.5 % (45.0-75.0) Lymphocytes (%) (Auto) 34.8 % (20.0-45.0) Monocytes (%) (Auto) 13.2 % (1.0-10.0) H Eosinophils (%) (Auto) 2.8 % (0.0-3.0) Basophils (%) (Auto) 0.7 % (0.0-2.0) Sodium Level 143 MMOL/L (136-145) Potassium Level 3.1 MMOL/L (3.5-5.1) L Chloride Level 107 MMOL/L (98-107) Carbon Dioxide Level 23 MMOL/L (21-32) Anion Gap 13 mmol/L (5-15) Blood Urea Nitrogen 9 mg/dL (7-18) Creatinine 0.7 MG/DL (0.55-1.30) Estimat Glomerular Filtration Rate > 60 mL/min (>60) Glucose Level 129 MG/DL (74-106) H Calcium Level 8.6 MG/DL (8.5-10.1) Plan Problems: (1) Psychosis (2) Fever (3) Diabetes mellitus (4) COPD (chronic obstructive pulmonary disease) (5) Nosocomial pneumonia (6) Suspected 2019-nCoV infection (7) Incontinence associated dermatitis Assessment & Plan: 74-year-old male currently admitted for fever work-up. On admission identified to have low body weight BMI 21 low albumin Having continence and identified to have abnormality around the sacral buttock region. On evaluation identified to be con associated dermatitis. Currently has a condom cath and good urine output. Bowel movements monitor closely to ensure and help with clean up Mental status makes it difficult for patient to comfortably turn side to side and even with assistance he moves around a lot. We will monitor closely to ensure improvement. Nutritional supplementation Labs noted We will follow with recommendations Participate patient's care DAILY ESTIMATED NEEDS: Needs based on DM, pulmonary/ 63.5kg 25-30 kcals/kg 9728-3959 total kcals 1-1.5 g protein/kg 64-96 g total protein 25-30 mL/kg 7338-0981 total fluid mLs NUTRITION DIAGNOSIS: * Swallowing difficulty R/T dysphagia as evidenced by seen by CONE EXAMINER w/ rec for pureed moist texture w/ NTL, w/ variable intake at this time. CURRENT DIET:CCHO MED, pureed moist w/ NTL PO DIET RECOMMENDATIONS: CCHO MED/ texture per CONE EXAMINER + Glucerna TID w/ meals ADDITIONAL RECOMMENDATIONS: * Calibrated bedscale wt for accurate CBW * Glucerna TID w/ meals * MVI x 1 as supplement * Monitor PO intake and tolerance closely -> variable intake at this time * A1C for eval of glycemic control Chris Morocho Apr 17, 2020 12:55
--- NOTE | 2020-04-17 14:00 | Pulmonology Progress Note ---
Subjective ROS Limited/Unobtainable: No Allergies: Coded Allergies: No Known Allergies (Unverified , 04/12/20) All Systems: reviewed and negative except above Objective Last 24 Hour Vital Signs Date Time Temp Pulse Resp B/P (MAP) Pulse Ox O2 Delivery O2 Flow Rate FiO2 04/17/20 12:00 97.6 71 18 112/61 (78) 95 04/17/20 09:00 Room Air 04/17/20 08:00 97.9 63 20 116/65 (82) 95 04/17/20 04:00 97.7 60 20 103/58 (73) 98 04/17/20 00:00 97.3 63 18 108/55 (72) 98 04/16/20 21:39 Room Air 04/16/20 20:08 72 20 98 Room Air 21 04/16/20 20:00 97.0 69 18 104/61 (75) 98 04/16/20 16:00 97.2 55 18 101/59 (73) 98 Intake and Output 04/16/20 04/17/20 19:00 07:00 Intake Total 294 ml Output Total 800 ml 500 ml Balance -506 ml -500 ml IV Total 294 ml Output Urine Total 800 ml 500 ml General Appearance: WD/WN HEENT: normocephalic, atraumatic Cardiovascular: normal peripheral pulses, normal rate Abdomen: normal bowel sounds, soft, non tender Genitourinary: normal external genitalia Extremities: no clubbing Skin: no lesions Microbiology Date/Time Source Procedure Growth Status 04/14/20 16:50 Nasopharynx Coronavirus COVID-19 PCR ([facility]) - Final Complete Laboratory Tests 04/17/20 05:00: White Blood Count 5.3, Red Blood Count 4.41L, Hemoglobin 12.8L, Hematocrit 35.5L , Mean Corpuscular Volume 80, Mean Corpuscular Hemoglobin 28.9, Mean Corpuscular Hemoglobin Concent 36.0, Red Cell Distribution Width 11.7, Platelet Count 426, Mean Platelet Volume 4.5L, Neutrophils (%) (Auto) 48.5, Lymphocytes ( %) (Auto) 34.8, Monocytes (%) (Auto) 13.2H, Eosinophils (%) (Auto) 2.8, Basophils (%) (Auto) 0.7, Sodium Level 143, Potassium Level 3.1L, Chloride Level 107, Carbon Dioxide Level 23, Anion Gap 13, Blood Urea Nitrogen 9, Creatinine 0.7, Estimat Glomerular Filtration Rate > 60, Glucose Level 129H, Calcium Level 8.6 Current Medications Medications (Trade) Dose Ordered Sig/Rodney Route PRN Reason Start Time Stop Time Status Last Admin Dose Admin Acetaminophen (Tylenol) 650 mg Q4H PRN ORAL fever 04/12/20 15:00 05/12/20 14:59 Albuterol/ Ipratropium (Combivent Respimat) 1 puff Q4H PRN INH Shortness of Breath 04/12/20 15:33 05/12/20 15:32 Atorvastatin Calcium (Lipitor) 20 mg BEDTIME ORAL 04/12/20 21:00 07/11/20 20:59 04/16/20 20:38 Cefepime HCl 2 gm/ Dextrose 110 ml @ 220 mls/hr EVERY 12 HOURS IV 04/12/20 21:00 04/19/20 20:59 04/17/20 09:33 Dextrose (Dextrose 50%) 25 ml Q30M PRN IV Hypoglycemia 04/12/20 15:00 07/11/20 14:59 Dextrose (Dextrose 50%) 50 ml Q30M PRN IV Hypoglycemia 04/12/20 15:00 07/11/20 14:59 Heparin Sodium (Porcine) (Heparin 5000 units/ml) 5,000 units EVERY 12 HOURS SUBQ 04/12/20 21:00 05/27/20 20:59 04/17/20 09:42 Insulin Aspart (NovoLOG) BEFORE MEALS AND HS SUBQ 04/12/20 16:30 07/11/20 16:29 04/17/20 05:40 Lorazepam (Ativan) 0.5 mg Q6H PRN ORAL For Anxiety 04/14/20 06:15 04/21/20 06:14 Memantine (Namenda) 5 mg BID ORAL 04/14/20 09:00 05/14/20 08:59 04/17/20 09:33 Nitroglycerin (Ntg) 0.4 mg Q5M PRN SL Prn Chest Pain 04/12/20 15:00 05/12/20 14:59 Ondansetron HCl (Zofran) 4 mg Q6H PRN IVP Nausea & Vomiting 04/12/20 15:00 05/12/20 14:59 Polyethylene Glycol (Miralax) 17 gm DAILYPRN PRN ORAL Constipation 04/12/20 15:00 05/12/20 14:59 Temazepam (Restoril) 15 mg HSPRN PRN ORAL Insomnia 04/12/20 15:00 04/19/20 14:59 04/15/20 22:34 Assessment/Plan Problems: (1) 2019 novel coronavirus disease (COVID-19) (2) Fever (3) Nosocomial pneumonia (4) COPD (chronic obstructive pulmonary disease) (5) Diabetes mellitus (6) Psychosis Assessment/Plan doing better K supplement doing ok fallon culture iv abx f/u wbc Olivia 19, is positive sliding scale diabetic diet Gabi Stewart MD Apr 17, 2020 14:00
--- NOTE | 2020-04-17 14:23 | Diagnostic Imaging Report ---
Indication: Shortness of breath Technique: One view of the chest Comparison: 04/12/2020 Findings: Right lung interstitial opacities, right basilar atelectasis and possible consolidation persist, unchanged. Interstitial disease on the left appears improved. Azygos lobe and fissure are again demonstrated. There is some atelectasis at the left lung base. The heart size is normal. Impression: Improving interstitial opacities in the right lung, over 4 days. Unchanged right lung interstitial infiltrates and basilar consolidation and atelectasis
--- NOTE | 2020-04-17 15:38 | Infectious Diseases Prog Note ---
Assessment/Plan Assessment/Plan Assessment: COVID PNA - at RA -2nd test is positive -04/17 CXR: Improving interstitial opacities in the right lung, over 4 days. 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)- afebrile here so far No leukocytosis -u/a neg; ucx Neg -Bcx NTD CONS bacteremia- contaminant -04/10 Bcx 11/20 CONS; 04/14 Bcx NTD Dm2 COPD psychiatric disorder SNF resident ([facility]) Plan: -Dc empiric Cefepime #04/21 and monitor off abx -Will consider Remdesivir if hypoxia (SpO2 <94% at Ra with evidence of clinical worsening or requiring supplemental O2) per [facility] [place] -04/16 SP IV Vancomycin #5 -04/12 SP Zosyn x1, Azithromycin x1 -f/u cx -monitor CBC/CMP, temperatures -COVID19 isolation and testing; 2nd test is positive Thank you for consulting [facility]. Will continue to follow along with you. Discussed with RN. Subjective Allergies: Coded Allergies: No Known Allergies (Unverified , 04/12/20) Subjective afebrile at RA Objective Vital Signs Last 24 Hour Vital Signs Date Time Temp Pulse Resp B/P (MAP) Pulse Ox O2 Delivery O2 Flow Rate FiO2 04/17/20 12:00 97.6 71 18 112/61 (78) 95 04/17/20 09:00 Room Air 04/17/20 08:00 97.9 63 20 116/65 (82) 95 04/17/20 04:00 97.7 60 20 103/58 (73) 98 04/17/20 00:00 97.3 63 18 108/55 (72) 98 04/16/20 21:39 Room Air 04/16/20 20:08 72 20 98 Room Air 21 04/16/20 20:00 97.0 69 18 104/61 (75) 98 04/16/20 16:00 97.2 55 18 101/59 (73) 98 Height (Feet): 5 Height (Inches): 8.00 Weight (Pounds): 140 Objective not examined to limit COVID19 exposure Microbiology Date/Time Source Procedure Growth Status 04/14/20 16:50 Nasopharynx Coronavirus COVID-19 PCR ([facility]) - Final Complete Laboratory Tests Test 04/17/20 05:00 White Blood Count 5.3 K/UL (4.8-10.8) Red Blood Count 4.41 M/UL (4.70-6.10) L Hemoglobin 12.8 G/DL (14.2-18.0) L Hematocrit 35.5 % (42.0-52.0) L Mean Corpuscular Volume 80 FL (80-99) Mean Corpuscular Hemoglobin 28.9 PG (27.0-31.0) Mean Corpuscular Hemoglobin Concent 36.0 G/DL (32.0-36.0) Red Cell Distribution Width 11.7 % (11.6-14.8) Platelet Count 426 K/UL (150-450) Mean Platelet Volume 4.5 FL (6.5-10.1) L Neutrophils (%) (Auto) 48.5 % (45.0-75.0) Lymphocytes (%) (Auto) 34.8 % (20.0-45.0) Monocytes (%) (Auto) 13.2 % (1.0-10.0) H Eosinophils (%) (Auto) 2.8 % (0.0-3.0) Basophils (%) (Auto) 0.7 % (0.0-2.0) Sodium Level 143 MMOL/L (136-145) Potassium Level 3.1 MMOL/L (3.5-5.1) L Chloride Level 107 MMOL/L (98-107) Carbon Dioxide Level 23 MMOL/L (21-32) Anion Gap 13 mmol/L (5-15) Blood Urea Nitrogen 9 mg/dL (7-18) Creatinine 0.7 MG/DL (0.55-1.30) Estimat Glomerular Filtration Rate > 60 mL/min (>60) Glucose Level 129 MG/DL (74-106) H Calcium Level 8.6 MG/DL (8.5-10.1) Current Medications Medications (Trade) Dose Ordered Sig/Rodney Route PRN Reason Start Time Stop Time Status Last Admin Dose Admin Acetaminophen (Tylenol) 650 mg Q4H PRN ORAL fever 04/12/20 15:00 05/12/20 14:59 Albuterol/ Ipratropium (Combivent Respimat) 1 puff Q4H PRN INH Shortness of Breath 04/12/20 15:33 05/12/20 15:32 Atorvastatin Calcium (Lipitor) 20 mg BEDTIME ORAL 04/12/20 21:00 07/11/20 20:59 04/16/20 20:38 Cefepime HCl 2 gm/ Dextrose 110 ml @ 220 mls/hr EVERY 12 HOURS IV 04/12/20 21:00 04/19/20 20:59 04/17/20 09:33 Dextrose (Dextrose 50%) 25 ml Q30M PRN IV Hypoglycemia 04/12/20 15:00 07/11/20 14:59 Dextrose (Dextrose 50%) 50 ml Q30M PRN IV Hypoglycemia 04/12/20 15:00 07/11/20 14:59 Heparin Sodium (Porcine) (Heparin 5000 units/ml) 5,000 units EVERY 12 HOURS SUBQ 04/12/20 21:00 05/27/20 20:59 04/17/20 09:42 Insulin Aspart (NovoLOG) BEFORE MEALS AND HS SUBQ 04/12/20 16:30 07/11/20 16:29 04/17/20 05:40 Lorazepam (Ativan) 0.5 mg Q6H PRN ORAL For Anxiety 04/14/20 06:15 04/21/20 06:14 Memantine (Namenda) 5 mg BID ORAL 04/14/20 09:00 05/14/20 08:59 04/17/20 09:33 Nitroglycerin (Ntg) 0.4 mg Q5M PRN SL Prn Chest Pain 04/12/20 15:00 05/12/20 14:59 Ondansetron HCl (Zofran) 4 mg Q6H PRN IVP Nausea & Vomiting 04/12/20 15:00 05/12/20 14:59 Polyethylene Glycol (Miralax) 17 gm DAILYPRN PRN ORAL Constipation 04/12/20 15:00 05/12/20 14:59 Temazepam (Restoril) 15 mg HSPRN PRN ORAL Insomnia 04/12/20 15:00 04/19/20 14:59 04/15/20 22:34 Genesis Omalley M.D. 1, 2020 15:38
[2020-04-17 16:00] VITALS: BP 122/64
--- NOTE | 2020-04-17 16:18 | NUR ---
CASE MANAGEMENT:REVIEW SI;COVID-19 PNA. BACTEREMIA. COPD. DM. 98.0 55 20 93/54 96% ON RA K+ 3.1 BG 129 IS;K-DUR PO ONCE CEFEPIME IV BID HEPARIN SUBQ Q12 HRS MED SURG STATUS DCP;FROM [facility] PLAN;WILL REFER TO [facility] D/T COVID+ STATUS
--- NOTE | 2020-04-17 19:15 | NUR ---
NURSE NOTES: Received report from JEANIE Grimaldo. Pt awake, non-verbal response, on room air. IV sites intact and patent. Condom cath in place. No acute distress noted. Bed locked, lowest position, alarm on, side rails up, call light within reach. Will continue to monitor.
--- NOTE | 2020-04-17 19:32 | NUR ---
HAND-OFF: Report given to Nadja WARE.
[2020-04-17 20:00] VITALS: BP 126/73
[2020-04-17] MEDS: Atorvastatin 20mg tab ORAL SCH (20:08)
[2020-04-18] VITALS: BP 118/62
[2020-04-18 03:53] VITALS: BP 120/71
[2020-04-18] MEDS: NovoLOG Insulin Flexpen SUBQ SCH ×4 (05:20→20:48)
[2020-04-18 05:42] LABS: BASOPHILS % (AUTO) 0.6 % (0.0-2.0); EOSINOPHILS % (AUTO) 3.5 % (0.0-3.0); HEMATOCRIT 38.1 % (42.0-52.0); HEMOGLOBIN 13.4 G/DL (14.2-18.0); LYMPHOCYTES % (AUTO) 42.9 % (20.0-45.0); MEAN CORPUSCULAR VOLUME 80 FL (80-99); MONOCYTES % (AUTO) 9.6 % (1.0-10.0); NEUTROPHILS % (AUTO) 43.4 % (45.0-75.0); PLATELET COUNT 449 K/UL (150-450); RED BLOOD COUNT 4.74 M/UL (4.70-6.10); RED CELL DISTRIBUTION WIDTH 11.8 % (11.6-14.8); WHITE BLOOD COUNT 6.1 K/UL (4.8-10.8)
[2020-04-18 05:57] LABS: ALANINE AMINOTRANSFERASE 18 U/L (12-78); ALBUMIN 2.8 G/DL (3.4-5.0); ALBUMIN/GLOBULIN RATIO 0.6 (1.0-2.7); ALKALINE PHOSPHATASE 91 U/L (46-116); ANION GAP 12 mmol/L (5-15); ASPARTATE AMINO TRANSFERASE 36 U/L (15-37); BILIRUBIN,TOTAL 0.7 MG/DL (0.2-1.0); BLOOD UREA NITROGEN 7 mg/dL (7-18); CALCIUM 8.5 MG/DL (8.5-10.1); CARBON DIOXIDE 25 MMOL/L (21-32); CHLORIDE 106 MMOL/L (98-107); CREATININE 0.7 MG/DL (0.55-1.30); SODIUM 142 MMOL/L (136-145)
--- NOTE | 2020-04-18 07:20 | NUR ---
NURSE NOTES: Received patient in bed. Awake, nonverbal. No signs of pain or distress noted at this time. IV site in place, saline locked. Side rails up x2, bed low and locked.
--- NOTE | 2020-04-18 07:21 | NUR ---
HAND-OFF: Report given to JEANIE Cottrell.
[2020-04-18 08:00] VITALS: BP 115/57
[2020-04-18] MEDS: LORazepam 0.5mg tab ORAL PRN (08:38)
[2020-04-18] MEDS: Memantine 5 MG TAB ORAL SCH ×2 (08:38→17:24)
[2020-04-18] MEDS: Heparin 5000 units/ml inj SUBQ SCH ×2 (08:40→20:31)
--- NOTE | 2020-04-18 11:00 | NUR ---
NURSE NOTES: Dr. Stewart made aware of potassium level 3.0. Awaiting orders.
[2020-04-18 12:00] VITALS: BP 107/58
--- NOTE | 2020-04-18 12:19 | Diagnostic Imaging Report ---
Indication: Dyspnea Technique: One view of the chest Comparison: 04/17/2020 Findings: Mild right mid and lower lung interstitial infiltrates are unchanged. The heart size is normal. Impression: Unchanged, over one day, findings as above.
--- NOTE | 2020-04-18 12:47 | Surgery Progress Note ---
Surgery Progress Note Subjective Additional Comments afebrile, HD stable comfortable no n/v/f/c Objective Last 24 Hour Vital Signs Date Time Temp Pulse Resp B/P (MAP) Pulse Ox O2 Delivery O2 Flow Rate FiO2 04/18/20 12:00 96.6 55 18 107/58 (74) 97 04/18/20 09:00 Room Air 04/18/20 08:00 97.6 67 18 115/57 (76) 96 04/18/20 03:53 98.2 69 19 120/71 (87) 95 04/18/20 00:00 97.9 60 20 118/62 (80) 93 04/17/20 21:00 Room Air 04/17/20 20:00 97.9 68 20 126/73 (90) 96 04/17/20 16:00 98.6 62 18 122/64 (83) 97 I&O Intake and Output 04/17/20 04/18/20 19:00 07:00 Intake Total 110 ml Balance 110 ml IV Total 110 ml Dressing: other Wound: other Drains: other Cardiovascular: RSR Respiratory: decreased breath sounds Abdomen: soft, non-tender, present bowel sounds Extremities: no cyanosis Laboratory Tests Test 04/18/20 04:00 White Blood Count 6.1 K/UL (4.8-10.8) Red Blood Count 4.74 M/UL (4.70-6.10) Hemoglobin 13.4 G/DL (14.2-18.0) L Hematocrit 38.1 % (42.0-52.0) L Mean Corpuscular Volume 80 FL (80-99) Mean Corpuscular Hemoglobin 28.2 PG (27.0-31.0) Mean Corpuscular Hemoglobin Concent 35.1 G/DL (32.0-36.0) Red Cell Distribution Width 11.8 % (11.6-14.8) Platelet Count 449 K/UL (150-450) Mean Platelet Volume 4.2 FL (6.5-10.1) L Neutrophils (%) (Auto) 43.4 % (45.0-75.0) L Lymphocytes (%) (Auto) 42.9 % (20.0-45.0) Monocytes (%) (Auto) 9.6 % (1.0-10.0) Eosinophils (%) (Auto) 3.5 % (0.0-3.0) H Basophils (%) (Auto) 0.6 % (0.0-2.0) Sodium Level 142 MMOL/L (136-145) Potassium Level 3.0 MMOL/L (3.5-5.1) L Chloride Level 106 MMOL/L (98-107) Carbon Dioxide Level 25 MMOL/L (21-32) Anion Gap 12 mmol/L (5-15) Blood Urea Nitrogen 7 mg/dL (7-18) Creatinine 0.7 MG/DL (0.55-1.30) Estimat Glomerular Filtration Rate > 60 mL/min (>60) Glucose Level 94 MG/DL (74-106) Calcium Level 8.5 MG/DL (8.5-10.1) Magnesium Level 2.0 MG/DL (1.8-2.4) Total Bilirubin 0.7 MG/DL (0.2-1.0) Aspartate Amino Transf (AST/SGOT) 36 U/L (15-37) Alanine Aminotransferase (ALT/SGPT) 18 U/L (12-78) Alkaline Phosphatase 91 U/L (46-116) Pro-B-Type Natriuretic Peptide 315 pg/mL (0-125) H Total Protein 7.3 G/DL (6.4-8.2) Albumin 2.8 G/DL (3.4-5.0) L Globulin 4.5 g/dL Albumin/Globulin Ratio 0.6 (1.0-2.7) L Plan Problems: (1) Psychosis (2) Fever (3) Diabetes mellitus (4) COPD (chronic obstructive pulmonary disease) (5) Nosocomial pneumonia (6) Suspected 2019-nCoV infection (7) Incontinence associated dermatitis Assessment & Plan: 74-year-old male currently admitted for fever work-up. On admission identified to have low body weight BMI 21 low albumin Having continence and identified to have abnormality around the sacral buttock region. On evaluation identified to be con associated dermatitis. Currently has a condom cath and good urine output. Bowel movements monitor closely to ensure and help with clean up Mental status makes it difficult for patient to comfortably turn side to side and even with assistance he moves around a lot. We will monitor closely to ensure improvement. Nutritional supplementation Labs noted We will follow with recommendations Participate patient's care DAILY ESTIMATED NEEDS: Needs based on DM, pulmonary/ 63.5kg 25-30 kcals/kg 8813-0950 total kcals 1-1.5 g protein/kg 64-96 g total protein 25-30 mL/kg 7948-0707 total fluid mLs NUTRITION DIAGNOSIS: * Swallowing difficulty R/T dysphagia as evidenced by seen by REFINERY OPERATOR ALKYLATION w/ rec for pureed moist texture w/ NTL, w/ variable intake at this time. CURRENT DIET:CCHO MED, pureed moist w/ NTL PO DIET RECOMMENDATIONS: CCHO MED/ texture per REFINERY OPERATOR ALKYLATION + Glucerna TID w/ meals ADDITIONAL RECOMMENDATIONS: * Calibrated bedscale wt for accurate CBW * Glucerna TID w/ meals * MVI x 1 as supplement * Monitor PO intake and tolerance closely -> variable intake at this time * A1C for eval of glycemic control Chris Morocho Apr 18, 2020 12:47
--- NOTE | 2020-04-18 12:52 | General Progress Note ---
Assessment/Plan Problem List: (1) Diabetes ICD Codes: E11.9 - Type 2 diabetes mellitus without complications SNOMED: 80896889 (2) CKD (chronic kidney disease) ICD Codes: N18.9 - Chronic kidney disease, unspecified SNOMED: 498581195 (3) Weak ICD Codes: R53.1 - Weakness SNOMED: 08966358 (4) PVD (peripheral vascular disease) ICD Codes: I73.9 - Peripheral vascular disease, unspecified SNOMED: 960691326 (5) Psychosis ICD Codes: F29 - Unspecified psychosis not due to a substance or known physiological condition SNOMED: 77266977 (6) Diabetes mellitus ICD Codes: E11.9 - Type 2 diabetes mellitus without complications SNOMED: 95605074 (7) COPD (chronic obstructive pulmonary disease) ICD Codes: J44.9 - Chronic obstructive pulmonary disease, unspecified SNOMED: 91699587 (8) Suspected 2019-nCoV infection ICD Codes: Z20.828 - Contact with and (suspected) exposure to other viral communicable diseases SNOMED: 702360418 (9) Nosocomial pneumonia ICD Codes: J18.9 - Pneumonia, unspecified organism; Y95 - Nosocomial condition SNOMED: 485723400 Status: stable, progressing Assessment/Plan: o2 pulm tx abx pt diet cbc bmp am dc if clear Subjective Constitutional: Reports: weakness Allergies: Coded Allergies: No Known Allergies (Unverified , 04/12/20) All Systems: reviewed and negative except above Subjective sleepy calm Objective Last 24 Hour Vital Signs Date Time Temp Pulse Resp B/P (MAP) Pulse Ox O2 Delivery O2 Flow Rate FiO2 04/18/20 12:00 96.6 55 18 107/58 (74) 97 04/18/20 09:00 Room Air 04/18/20 08:00 97.6 67 18 115/57 (76) 96 04/18/20 03:53 98.2 69 19 120/71 (87) 95 04/18/20 00:00 97.9 60 20 118/62 (80) 93 04/17/20 21:00 Room Air 04/17/20 20:00 97.9 68 20 126/73 (90) 96 04/17/20 16:00 98.6 62 18 122/64 (83) 97 Intake and Output 04/17/20 04/18/20 19:00 07:00 Intake Total 110 ml Balance 110 ml IV Total 110 ml Laboratory Tests 04/18/20 04:00: White Blood Count 6.1, Red Blood Count 4.74, Hemoglobin 13.4L, Hematocrit 38.1L , Mean Corpuscular Volume 80, Mean Corpuscular Hemoglobin 28.2, Mean Corpuscular Hemoglobin Concent 35.1, Red Cell Distribution Width 11.8, Platelet Count 449, Mean Platelet Volume 4.2L, Neutrophils (%) (Auto) 43.4L, Lymphocytes (%) (Auto) 42.9, Monocytes (%) (Auto) 9.6, Eosinophils (%) (Auto) 3.5H, Basophils (%) (Auto) 0.6, Sodium Level 142, Potassium Level 3.0L, Chloride Level 106, Carbon Dioxide Level 25, Anion Gap 12, Blood Urea Nitrogen 7, Creatinine 0.7, Estimat Glomerular Filtration Rate > 60, Glucose Level 94, Calcium Level 8.5, Magnesium Level 2.0, Total Bilirubin 0.7, Aspartate Amino Transf (AST/SGOT) 36, Alanine Aminotransferase (ALT/SGPT) 18, Alkaline Phosphatase 91, Pro-B-Type Natriuretic Peptide 315H, Total Protein 7.3, Albumin 2.8L, Globulin 4.5, Albumin/Globulin Ratio 0.6L Height (Feet): 5 Height (Inches): 8.00 Weight (Pounds): 140 General Appearance: lethargic EENT: normal ENT inspection Neck: normal alignment Cardiovascular: normal rate, regular rhythm Respiratory/Chest: no respiratory distress, no accessory muscle use Extremities: normal inspection Skin: normal pigmentation Prem Parnell DO Apr 18, 2020 12:52
--- NOTE | 2020-04-18 13:00 | NUR ---
Received orders for Potassium 40 mEq IV x1.
--- NOTE | 2020-04-18 13:11 | NUR ---
*-* DISCHARGE PLANNING *-* COVID 19 RESULTS HAVE BEEN FAXED TO: SHANI F: [phone]
--- NOTE | 2020-04-18 13:58 | NUR ---
*-* DISCHARGE PLANNING *-* PATIENT HAS BEEN REFERRED TO: [facility] F: [phone]
--- NOTE | 2020-04-18 14:18 | Pulmonology Progress Note ---
Subjective ROS Limited/Unobtainable: No Hematologic: Reports: no symptoms Musculoskeletal: Reports: no symptoms Allergies: Coded Allergies: No Known Allergies (Unverified , 04/12/20) All Systems: reviewed and negative except above Objective Last 24 Hour Vital Signs Date Time Temp Pulse Resp B/P (MAP) Pulse Ox O2 Delivery O2 Flow Rate FiO2 04/18/20 12:00 96.6 55 18 107/58 (74) 97 04/18/20 09:00 Room Air 04/18/20 08:00 97.6 67 18 115/57 (76) 96 04/18/20 03:53 98.2 69 19 120/71 (87) 95 04/18/20 00:00 97.9 60 20 118/62 (80) 93 04/17/20 21:00 Room Air 04/17/20 20:00 97.9 68 20 126/73 (90) 96 04/17/20 16:00 98.6 62 18 122/64 (83) 97 Intake and Output 04/17/20 04/18/20 19:00 07:00 Intake Total 110 ml Balance 110 ml IV Total 110 ml General Appearance: WD/WN HEENT: normocephalic, atraumatic Cardiovascular: normal peripheral pulses, normal rate Abdomen: normal bowel sounds, soft, non tender Genitourinary: normal external genitalia Extremities: no clubbing Skin: no lesions Neurologic: surgical technology instructor II-XII grossly normal Laboratory Tests 04/18/20 04:00: White Blood Count 6.1, Red Blood Count 4.74, Hemoglobin 13.4L, Hematocrit 38.1L , Mean Corpuscular Volume 80, Mean Corpuscular Hemoglobin 28.2, Mean Corpuscular Hemoglobin Concent 35.1, Red Cell Distribution Width 11.8, Platelet Count 449, Mean Platelet Volume 4.2L, Neutrophils (%) (Auto) 43.4L, Lymphocytes (%) (Auto) 42.9, Monocytes (%) (Auto) 9.6, Eosinophils (%) (Auto) 3.5H, Basophils (%) (Auto) 0.6, Sodium Level 142, Potassium Level 3.0L, Chloride Level 106, Carbon Dioxide Level 25, Anion Gap 12, Blood Urea Nitrogen 7, Creatinine 0.7, Estimat Glomerular Filtration Rate > 60, Glucose Level 94, Calcium Level 8.5, Magnesium Level 2.0, Total Bilirubin 0.7, Aspartate Amino Transf (AST/SGOT) 36, Alanine Aminotransferase (ALT/SGPT) 18, Alkaline Phosphatase 91, Pro-B-Type Natriuretic Peptide 315H, Total Protein 7.3, Albumin 2.8L, Globulin 4.5, Albumin/Globulin Ratio 0.6L Current Medications Medications (Trade) Dose Ordered Sig/Rodney Route PRN Reason Start Time Stop Time Status Last Admin Dose Admin Acetaminophen (Tylenol) 650 mg Q4H PRN ORAL fever 04/12/20 15:00 05/12/20 14:59 Albuterol/ Ipratropium (Combivent Respimat) 1 puff Q4H PRN INH Shortness of Breath 04/12/20 15:33 05/12/20 15:32 Atorvastatin Calcium (Lipitor) 20 mg BEDTIME ORAL 04/12/20 21:00 07/11/20 20:59 04/17/20 20:08 Dextrose (Dextrose 50%) 25 ml Q30M PRN IV Hypoglycemia 04/12/20 15:00 07/11/20 14:59 Dextrose (Dextrose 50%) 50 ml Q30M PRN IV Hypoglycemia 04/12/20 15:00 07/11/20 14:59 Heparin Sodium (Porcine) (Heparin 5000 units/ml) 5,000 units EVERY 12 HOURS SUBQ 04/12/20 21:00 05/27/20 20:59 04/18/20 08:40 Insulin Aspart (NovoLOG) BEFORE MEALS AND HS SUBQ 04/12/20 16:30 07/11/20 16:29 04/17/20 18:00 Lorazepam (Ativan) 0.5 mg Q6H PRN ORAL For Anxiety 04/14/20 06:15 04/21/20 06:14 04/18/20 08:38 Memantine (Namenda) 5 mg BID ORAL 04/14/20 09:00 05/14/20 08:59 04/18/20 08:38 Nitroglycerin (Ntg) 0.4 mg Q5M PRN SL Prn Chest Pain 04/12/20 15:00 05/12/20 14:59 Ondansetron HCl (Zofran) 4 mg Q6H PRN IVP Nausea & Vomiting 04/12/20 15:00 05/12/20 14:59 Polyethylene Glycol (Miralax) 17 gm DAILYPRN PRN ORAL Constipation 04/12/20 15:00 05/12/20 14:59 Potassium Chloride 100 ml @ 100 mls/hr Q1H IVPB 04/18/20 14:00 04/18/20 17:59 04/18/20 14:04 Temazepam (Restoril) 15 mg HSPRN PRN ORAL Insomnia 04/12/20 15:00 04/19/20 14:59 04/15/20 22:34 Assessment/Plan Problems: (1) 2019 novel coronavirus disease (COVID-19) (2) Fever (3) Nosocomial pneumonia (4) COPD (chronic obstructive pulmonary disease) (5) Diabetes mellitus (6) Psychosis Assessment/Plan doing better K supplement again doing ok fallon culture iv abx f/u wbc Olivia 19, is positive sliding scale diabetic diet Gabi Stewart MD Apr 18, 2020 14:18
--- NOTE | 2020-04-18 14:43 | NUR ---
DISCHARGE PLANNING PATIENT HAS BEEN REFERRED TO [facility] P: [phone] F: [phone] Addendum: 04/18/20 at 1635 by BELKIS VILLASEÑOR LVN LVN FOLLOW UP CALL MADE TO [facility]. [facility]. CONFIRMED PATIENT ACCEPTED AND ASSIGNED TO BED 111-B SKILLED PER [facility], STATES THEY ARE UNABLE TO ADMIT PATIENT TODAY DUE TO STAFFING. ABLE TO ADMIT PATIENT ON NICK 04/19/20 AT 1100 AM. S AMBULANCE TRANSPORTATION SCHEDULED WITH [facility]T 8888 FOR 04/19/2020 AT 1030 AM.
--- NOTE | 2020-04-18 14:45 | Progress Note ---
DATE: 04/18/2020 SUBJECTIVE: This is a 74-year-old male patient with fever, confusion, disorganized thought process. He has got decline in cognition below his baseline. He has got feelings of helplessness, hopelessness, low energy, poor appetite, and loss of interest in activity. He has got fever, possible COVID-19 infection. He has lot of mood lability, agitation, and decline in cognition below his baseline. That is why, his attending has requested daily psychiatric consultation at this time. MENTAL STATUS EXAMINATION: This is a 74-year-old male. Appearance is disheveled. Attitude, irritable and agitated. Affect, guarded and restricted. Intellect poor. Mood, depressed and anxious. Motor activity, psychomotor agitation. Insight and judgment is poor. DIAGNOSIS: Major depressive disorder, mild, recurrent with psychotic features, rule out dementia with psychosis. PLAN: Treat him with Ativan 0.5 mg every 6 hours p.r.n. anxiety and agitation, Namenda 5 mg twice a day. A 20 minutes of cognitive behavioral therapy to help him identify his automatic negative thoughts and help him convert those negative thoughts to more positive thoughts to reduce depression, anxiety, and mood lability. Chart reviewed. Discussed with staff. Seen and assessed at bedside. Cristine Duenas M.D. DR: TAY JOB#: [id number] CC:
[2020-04-18 16:00] VITALS: BP 105/63
--- NOTE | 2020-04-18 19:08 | NUR ---
HAND-OFF: Report given to Mart WARE.
--- NOTE | 2020-04-18 19:25 | NUR ---
NURSE NOTES: Pt. received from JEANIE Cottrell. Pt. nonverbal, breathing even and unlabored, no indications of pain. Condom catheter intact, draining urine well. IV left forearm 20g, intact and patent, tko and IV R AC 22g intact and patent, saline locked. Bed is low and locked, side rails x3 up, bed alarm active, and call light in reach.
[2020-04-18 20:00] VITALS: BP 132/89
[2020-04-18] MEDS: Atorvastatin 20mg tab ORAL SCH (20:30)
[2020-04-19] VITALS: BP 114/63
[2020-04-19 04:00] VITALS: BP 125/65
[2020-04-19 04:31] LABS: BASOPHILS % (AUTO) 0.5 % (0.0-2.0); EOSINOPHILS % (AUTO) 2.9 % (0.0-3.0); HEMATOCRIT 39.1 % (42.0-52.0); HEMOGLOBIN 13.9 G/DL (14.2-18.0); LYMPHOCYTES % (AUTO) 49.5 % (20.0-45.0); MEAN CORPUSCULAR VOLUME 81 FL (80-99); MONOCYTES % (AUTO) 4.3 % (1.0-10.0); NEUTROPHILS % (AUTO) 42.8 % (45.0-75.0); PLATELET COUNT 508 K/UL (150-450); RED BLOOD COUNT 4.84 M/UL (4.70-6.10); RED CELL DISTRIBUTION WIDTH 12.1 % (11.6-14.8); WHITE BLOOD COUNT 6.6 K/UL (4.8-10.8)
[2020-04-19 04:44] LABS: ANION GAP 11 mmol/L (5-15); BLOOD UREA NITROGEN 7 mg/dL (7-18); CALCIUM 8.9 MG/DL (8.5-10.1); CARBON DIOXIDE 26 MMOL/L (21-32); CHLORIDE 104 MMOL/L (98-107); CREATININE 0.9 MG/DL (0.55-1.30); POTASSIUM 3.3 MMOL/L (3.5-5.1); SODIUM 141 MMOL/L (136-145)
[2020-04-19] MEDS: NovoLOG Insulin Flexpen SUBQ SCH (05:55)
--- NOTE | 2020-04-19 07:11 | NUR ---
HAND-OFF: Report given to JEANIE Cottrell.
[2020-04-19 08:00] VITALS: BP 137/71
[2020-04-19] MEDS: LORazepam 0.5mg tab ORAL PRN (08:09)
[2020-04-19] MEDS: Memantine 5 MG TAB ORAL SCH (08:09)
[2020-04-19] MEDS: Heparin 5000 units/ml inj SUBQ SCH (08:22)
--- NOTE | 2020-04-19 09:24 | NUR ---
*-*DISCHARGE PLANNING*-* PATIENT HAS BEEN ACCEPTED AND WILL BE DISCHARGED TO: [facility] P: [phone] FOR NURSE TO NURSE REPORT RM# [id number] [facility] TRAN[facility] SET FOR 10:30AM PLACE A CALL TO POA ON PATIENTS FACESHEET, P/T SON JOYCELYN SHARPE, WRONG NUMBER, PLACED SECOND CALL TO PATIENTS SON RICHARD SHARPE, NO ANSWER PHONE JUST RUNG.
[2020-04-19] MEDS ORDERED: COMBIVENT RESPIM4 GM IH (09:33)
[2020-04-19] MEDS ORDERED: NAMENDA10 MG ORAL (09:34)
[2020-04-19] MEDS ORDERED: ATIVAN0.5 MG ORAL (09:34)
[2020-04-19] MEDS ORDERED: NITRO0.4 SL (09:34)
[2020-04-19] MEDS ORDERED: MIRALAX17 G2 ORAL (09:35)
[2020-04-19] MEDS ORDERED: RESTORIL15 MG ORAL (09:35)
--- NOTE | 2020-04-19 10:07 | General Progress Note ---
Assessment/Plan Problem List: (1) Diabetes ICD Codes: E11.9 - Type 2 diabetes mellitus without complications SNOMED: 38086095 (2) CKD (chronic kidney disease) ICD Codes: N18.9 - Chronic kidney disease, unspecified SNOMED: 891577774 (3) Weak ICD Codes: R53.1 - Weakness SNOMED: 30633850 (4) PVD (peripheral vascular disease) ICD Codes: I73.9 - Peripheral vascular disease, unspecified SNOMED: 653147816 (5) Psychosis ICD Codes: F29 - Unspecified psychosis not due to a substance or known physiological condition SNOMED: 27946772 (6) Diabetes mellitus ICD Codes: E11.9 - Type 2 diabetes mellitus without complications SNOMED: 25253687 (7) COPD (chronic obstructive pulmonary disease) ICD Codes: J44.9 - Chronic obstructive pulmonary disease, unspecified SNOMED: 37814442 (8) Suspected 2019-nCoV infection ICD Codes: Z20.828 - Contact with and (suspected) exposure to other viral communicable diseases SNOMED: 872950464 (9) Nosocomial pneumonia ICD Codes: J18.9 - Pneumonia, unspecified organism; Y95 - Nosocomial condition SNOMED: 896367793 Status: stable, progressing Assessment/Plan: o2 pulm tx abx pt diet cbc bmp am dc if clear Subjective Constitutional: Reports: weakness Allergies: Coded Allergies: No Known Allergies (Unverified , 04/12/20) All Systems: reviewed and negative except above Subjective sleepy calm Objective Last 24 Hour Vital Signs Date Time Temp Pulse Resp B/P (MAP) Pulse Ox O2 Delivery O2 Flow Rate FiO2 04/19/20 04:00 97.5 57 20 125/65 (85) 96 04/19/20 00:00 97.0 64 20 114/63 (80) 96 04/18/20 21:00 Room Air 04/18/20 20:00 98.1 87 22 132/89 (103) 95 04/18/20 16:00 97.9 68 20 105/63 (77) 97 04/18/20 12:00 96.6 55 18 107/58 (74) 97 Intake and Output 04/18/20 04/19/20 19:00 07:00 Intake Total 120 ml Output Total 1200 ml 2 ml Balance -1080 ml -2 ml Intake Oral 120 ml Output Urine Total 1200 ml 2 ml Laboratory Tests 04/19/20 04:00: White Blood Count 6.6, Red Blood Count 4.84, Hemoglobin 13.9L, Hematocrit 39.1L , Mean Corpuscular Volume 81, Mean Corpuscular Hemoglobin 28.8, Mean Corpuscular Hemoglobin Concent 35.6, Red Cell Distribution Width 12.1, Platelet Count 508H, Mean Platelet Volume 4.5L, Neutrophils (%) (Auto) 42.8L, Lymphocytes (%) (Auto) 49.5H, Monocytes (%) (Auto) 4.3, Eosinophils (%) (Auto) 2.9, Basophils (%) (Auto) 0.5, Sodium Level 141, Potassium Level 3.3L, Chloride Level 104, Carbon Dioxide Level 26, Anion Gap 11, Blood Urea Nitrogen 7, Creatinine 0.9, Estimat Glomerular Filtration Rate > 60, Glucose Level 115H, Calcium Level 8.9 Height (Feet): 5 Height (Inches): 8.00 Weight (Pounds): 130 General Appearance: lethargic EENT: normal ENT inspection Neck: normal alignment Cardiovascular: normal rate, regular rhythm Respiratory/Chest: no respiratory distress, no accessory muscle use Extremities: normal inspection Skin: normal pigmentation Prem Parnell DO Apr 19, 2020 10:07
--- NOTE | 2020-04-19 10:59 | NUR ---
NURSE NOTES: Patient d/c via EMT [facility]. VSS. Patient belongings list verified. ID band removed, IV sites removed. Report given to Lisandra WARE at [facility].
--- NOTE | 2020-04-20 12:19 | Discharge Summary ---
Discharge Summary Discharge Summary _ DATE OF ADMISSION: 04/12/2020 DATE OF DISCHARGE: 04/19/2020 DISCHARGED BY: Dr Parnell REASON FOR ADMISSION: 74 years old male, resident of halfway facility, with past medical history of diabetes mellitus, COPD, psychiatric disorder, was transferred for evaluation due to fever for 1 day. Patient received Tylenol at the facility prior to transfer. Patient was afebrile in triage. No signs of distress upon arrival. Patient by himself was unable to provide any additional history due to psychiatric disorder. Upon evaluation vital signs were stable. Laboratory work-up revealed no leukocytosis, stable hemoglobin, hematocrit and platelet count. Urinalysis revealed +2 protein, but was negative for evidence of urinary tract infection. Potassium 3.5. Stable renal parameters. Lactic acid 2.1. AST 25 ALT 25. Albumin 3.0. EKG revealed sinus rhythm no acute ischemic changes. Chest x-ray demonstrated bilateral interstitial and airspace infiltrates, possibly representing pneumonia. Patient was swabbed for COVID-19. Patient started on IV fluids and empiric antibiotics and admitted for further management CONSULTANTS: pulmonary Dr. Stewart ID specialist Dr. Omalley surgery Dr. Morocho psychiatrist Dr. Duenas [facility]: Patient admitted and continued on IV hydration and empiric antibiotics. Patient was kept in isolation. Supplemental oxygen provided and titrated to keep pulse oximetry above 92%. Pulmonary toilet provided. SARS COV 2 by PCR on 04/12 was negative , but on was detected. Isolation continued. Blood culture initially showed Staph coag negative. Urine culture revealed no evidence of growth. Repeated blood cultures were negative. Initial positive blood culture were most likely contaminant. DVT prophylaxis provided. Blood sugar was managed with sliding scale of insulin. Bowel regimen instituted. Supportive care provided. Renal parameters and electrolytes were closely monitored. Electrolytes/potassium corrected. Nephrotoxic's were avoided. Swallow evaluation was done. Diet texture provided as per speech therapist recommendation. Dietary supplements provided as per registered nurse ambulatory recommendation. Strict aspiration precaution maintained. Topical skin care for incontinence dermatitis provided. Patient was placed condom cath. Psychiatric medication regimen was optimized as per psychiatrist. Cognitive behavioral therapy provided. Patient clinically stabilized and was ready for transfer back to [facility] for continuation of care. 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 DISCHARGE INSTRUCTIONS: Patient was discharged to the halfway facility. Follow up with medical doctor at the facility. Lila Silvestre NP Apr 20, 2020 12:19
== END 2020-04-19 11:00 | DRG 177 ==
LOC: EDBD 11:20 → EMR 12:14 → 4E 12:20 → EDBEDREQ 15:03 → 4E 04-15 16:30
DX: U07.1 COVID-19 (principal); J12.89 Other viral pneumonia; E46 Unspecified protein-calorie malnutrition; F33.0 Major depressive disorder, recurrent, mild; J44.9 Chronic obstructive pulmonary disease, unspecified; D64.9 Anemia, unspecified; E11.22 Type 2 diabetes mellitus with diabetic chronic kidney disease; I73.9 Peripheral vascular disease, unspecified; F20.9 Schizophrenia, unspecified; N18.9 Chronic kidney disease, unspecified; E87.6 Hypokalemia; R32 Unspecified urinary incontinence; Z79.82 Long term (current) use of aspirin; Z79.4 Long term (current) use of insulin; L30.8 Other specified dermatitis
CPT/HCPCS: 36415; 71045; 80048; 80053; 80202; 81001; 81003; 82962; 83605; 83735; 83880; 84100; 85007; 85025; 85651; 86140; 87040; 87070; 87081; 87086; 87181; 87205; 87635; 92610; 93005; 94664; 96361; 96365; 96368; 97803; 99285; J1815; J7030; J8499